=== PATIENT | male | born 1965 | race Caucasian/White ===

== ENCOUNTER 2017-01-25 13:44 | Emergency (ER) | payer MEDICARE, OTHER ==
[~2017-01-25] VITALS: Ht 185.4 cm; Wt 65.0 kg
[2017-01-25 13:48] VITALS: BP 131/86; PULSE 101; RESP 15; TEMP 98.4; O2SAT 98
--- NOTE | 2017-01-25 13:52 | PD ---
Physical Exam Time Seen by Provider: 13:50 Narrative 51yo M requesting staple removal from left hip after left hip replacement 2 weeks ago. Surgeon is in [place]. Denies fever, vomiting. Denies drainage from wound site. Patient seen in triage. VS reviewed. Awaiting bed placement. Data Data Last Documented VS Vital Signs Date Time Temp Pulse Resp B/P (MAP) Pulse Ox O2 Delivery O2 Flow Rate FiO2 01/25/17 13:48 98.4 101 15 131/86 (101) 98 MDM Supervised Visit with MESSI: No Scripts No Active Prescriptions or Reported Meds Franecsca Whitehead Jan 25, 2017 13:52
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
== END 2017-01-25 15:24 | disposition home or self-care (01) ==
LOC: NEPK 13:44
DX: Z48.02 Encounter for removal of sutures (principal); M13.80 Other specified arthritis, unspecified site; J45.909 Unspecified asthma, uncomplicated; F31.9 Bipolar disorder, unspecified; F41.9 Anxiety disorder, unspecified; J44.9 Chronic obstructive pulmonary disease, unspecified; F20.9 Schizophrenia, unspecified; Z86.73 Personal history of transient ischemic attack (TIA), and cerebral infarction without residual deficits; Z86.19 Personal history of other infectious and parasitic diseases
CPT/HCPCS: 99281

== ENCOUNTER 2017-01-27 18:33 | Emergency (ER) | payer MEDICARE, MEDICAID ==
[~2017-01-27] VITALS: Ht 185.4 cm; Wt 65.0 kg
[2017-01-27 18:51] VITALS: BP 125/80; PULSE 72; RESP 18; TEMP 98.5; O2SAT 98
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
[2017-01-27] MEDS ORDERED: SODIUM CHLORIDE 0.9% FLUSH 10 ML FLUSH IV FLUSH PRN (19:00)
[2017-01-27] MEDS ORDERED: MULTTAB67 PO (19:09)
[2017-01-27] MEDS ORDERED: CELE200C PO (19:09)
[2017-01-27 19:42] LABS: AUTOMATED NEUTROPHIL # 5.7 TH/MM3 (1.8-7.7); BASOPHIL # 0.1 TH/MM3 (0-0.2); BASOPHIL % 0.7 % (0.0-2.0); EOSINOPHIL # 0.2 TH/MM3 (0-0.4); HEMATOCRIT 35.1 % (39.0-51.0); HEMO FLAGS DIFF FINAL; LYMPH % 24.6 % (9.0-44.0); LYMPHOCYTE # 2.1 TH/MM3 (1.0-4.8); MEAN CELL VOLUME 96.1 FL (80.0-100.0); MEAN CORPUSCULAR HGB CONC 33.3 % (32.0-36.0); MONO % 6.4 % (0.0-8.0); NEUT % 66.3 % (16.0-70.0); PLATELET COUNT 331 TH/MM3 (150-450); RED BLOOD COUNT 3.65 MIL/MM3 (4.50-5.90); RED CELL DISTRIBUTION WIDTH 15.1 % (11.6-17.2); WHITE BLOOD COUNT 8.7 TH/MM3 (4.0-11.0)
[2017-01-27 19:51] LABS: APTT (PATIENT) 27.8 SEC (24.3-30.1)
[2017-01-27] MEDS ORDERED: ONDANSETRON HCL 4 MG/2 ML VIAL IV PUSH ONE (20:00)
[2017-01-27] MEDS ORDERED: MORPHINE SULFATE 4 MG/ML INJ IV PUSH ONE (20:00)
--- NOTE | 2017-01-27 20:23 | RADRPT ---
EXAM DATE/TIME: 01/27/2017 19:21 [facility] COMPARISON: No previous studies available for comparison. INDICATIONS : Left hip pain post fall with history of hip prosthesis. MEDICAL HISTORY : None. SURGICAL HISTORY : Left hip prosthesis ENCOUNTER: Initial ACUITY: 1 day PAIN SCORE: 10/10 LOCATION: Left hip FINDINGS: There is evidence of superior dislocation of the left hip prosthesis including the acetabular and fem oral components. CONCLUSION: Superior dislocation of the acetabular and femoral components of the left hip prosthesis. Jorge Bledsoe MD on January 27, 2017 at 20:20 Board Certified Radiologist. This report was verified electronically.
[2017-01-27 20:25] LABS: BICARBONATE 22.3 MEQ/L (21.0-32.0); POTASSIUM 4.3 MEQ/L (3.5-5.1)
[2017-01-27] MEDS ORDERED: ETOMIDATE 20 MG/10 ML VIAL IV PUSH ONE (21:15)
[2017-01-27] MEDS ORDERED: PROPOFOL 500 MG/50 ML INJ 50 ML ONE (21:23)
[2017-01-27 21:26] VITALS: O2SAT 98
[2017-01-27] MEDS ORDERED: HYDR-3533 PO (21:54)
--- NOTE | 2017-01-27 21:55 | PD ---
Physical Exam Date Seen by Provider: Jan 27, 2017 Time Seen by Provider: 19:00 Narrative I, Dr. Barahona, have reviewed the advance practice practitioner's documentation and am in agreement, met with the patient face to face, made the diagnosis, and the medical decision making was done by me. *My assessment and Findings: Patient seen and evaluated with PA, please see PA note for further details. Patient has a recent history of left hip replacement , dislocated his slipped today seen on x-ray. At this point, I involved in the case and the patient was consented for conscious sedation and hip reduction. Reduction was done by me with help of PA without issues. Patient tolerated procedure well. Reduction films done. Laboratory Tests Test 01/27/17 19:25 Red Blood Count 3.65 MIL/MM3 (4.50-5.90) Hemoglobin 11.7 GM/DL (13.0-17.0) Hematocrit 35.1 % (39.0-51.0) Calcium Level 7.9 MG/DL (8.5-10.1) Ethyl Alcohol Level 227 MG/DL (0-5) Last 24 hours Impressions Hip X-Ray 01/27/17 0000 Signed Impressions: Service Date/Time: Friday, January 27, 2017 19:21 - CONCLUSION: Superior dislocation of the acetabular and femoral components of the left hip prosthesis. Jorge Bledsoe MD Data Data Last Documented VS Vital Signs Date Time Temp Pulse Resp B/P (MAP) Pulse Ox O2 Delivery O2 Flow Rate FiO2 01/27/17 21:26 98 3.00 01/27/17 21:26 Nasal Cannula 01/27/17 18:51 98.5 72 18 125/80 (95) Orders Orders Iv Access Insert/Monitor (01/27/17 18:49) Ecg Monitoring (01/27/17 18:49) Oximetry (01/27/17 18:49) Sodium Chloride 0.9% Flush (Ns Flush) (01/27/17 19:00) Basic Metabolic Panel (Bmp) (01/27/17 19:17) Complete Blood Count With Diff (01/27/17 19:17) Prothrombin Time / Inr (Pt) (01/27/17 19:17) Act Partial Throm Time (Ptt) (01/27/17 19:17) Alcohol (Ethanol) (01/27/17 19:17) Hip, Ap Only Wo Ap Pelvis (01/27/17 ) Splint Or Brace Apply/Monitor (01/27/17 19:27) Morphine Inj (Morphine Inj) (01/27/17 20:00) Ondansetron Inj (Zofran Inj) (01/27/17 20:00) Immobilizer Knee 20 Inch (01/27/17 ) Etomidate Inj (Amidate Inj) (01/27/17 21:15) Propofol 500 Mg/50 Ml Inj (Diprivan 500 (01/27/17 21:23) Hip, Uni(Ap&Lat) Wo Ap Pelvis (01/27/17 ) Sodium Chlorid 0.9% 500 Ml Inj (Ns 500 M (01/27/17 22:00) Labs Laboratory Tests Test 01/27/17 19:25 White Blood Count 8.7 TH/MM3 Red Blood Count 3.65 MIL/MM3 Hemoglobin 11.7 GM/DL Hematocrit 35.1 % Mean Corpuscular Volume 96.1 FL Mean Corpuscular Hemoglobin 32.0 PG Mean Corpuscular Hemoglobin Concent 33.3 % Red Cell Distribution Width 15.1 % Platelet Count 331 TH/MM3 Mean Platelet Volume 7.1 FL Neutrophils (%) (Auto) 66.3 % Lymphocytes (%) (Auto) 24.6 % Monocytes (%) (Auto) 6.4 % Eosinophils (%) (Auto) 2.0 % Basophils (%) (Auto) 0.7 % Neutrophils # (Auto) 5.7 TH/MM3 Lymphocytes # (Auto) 2.1 TH/MM3 Monocytes # (Auto) 0.6 TH/MM3 Eosinophils # (Auto) 0.2 TH/MM3 Basophils # (Auto) 0.1 TH/MM3 CBC Comment DIFF FINAL Differential Comment Prothrombin Time 11.0 SEC Prothromb Time International Ratio 1.0 RATIO Activated Partial Thromboplast Time 27.8 SEC Blood Urea Nitrogen 9 MG/DL Creatinine 0.65 MG/DL Random Glucose 85 MG/DL Calcium Level 7.9 MG/DL Sodium Level 136 MEQ/L Potassium Level 4.3 MEQ/L Chloride Level 106 MEQ/L Carbon Dioxide Level 22.3 MEQ/L Anion Gap 8 MEQ/L Estimat Glomerular Filtration Rate 129 ML/MIN Ethyl Alcohol Level 227 MG/DL [facility] Medical Record Reviewed: Yes Supervised Visit with MESSI: Yes Procedures Procedure Narrative After the risks and benefits were discussed the following procedure was performed: MODERATE SEDATION: The patient was placed on a manager publishing and pulse oximetry. An ambu bag and suction was immediately available at bedside. The patient was monitored by the nurse. Oxygen saturation, heart rate and blood pressure were monitored. Procedural sedation was acheived using 20 mg of etomidate. The patient was observed until awake and alert. Procedural Sedation time in attendance was 10 minutes. The left hip was reduced using the [place] technique. X-ray was done to confirm reduction. His left leg was then placed in a knee immobilizer and patient was given crutches. Diagnosis Primary Impression: Hip dislocation, left Med/Other Pt SpecificInfo: Prescription(s) given Scripts Hydrocodone-Acetaminophen (Lortab) 5-325 Mg Tab 1 TAB PO Q6H Y for PAIN, #15 TAB 0 Refills Prov: Umair Barahona MD 01/27/17 Disposition: 01 DISCHARGE HOME Condition: Stable Umair Barahona MD Jan 27, 2017 21:55
[2017-01-27] MEDS ORDERED: SODIUM CHLORID 0.9% 500 ML INJ 500 ML IV ONE (22:00)
--- NOTE | 2017-01-27 22:10 | RADRPT ---
EXAM DATE/TIME: 01/27/2017 21:47 [facility] COMPARISON: HIP LEFT AP ONLY WO AP PELVIS, January 27, 2017, 19:21. INDICATIONS : Post Reduction MEDICAL HISTORY : None. SURGICAL HISTORY : Left hip prosthesis ENCOUNTER: Subsequent ACUITY: 1 day PAIN SCORE: 3/10 LOCATION: Left hip FINDINGS: There has been successful closed reduction of the dislocated left hip prosthesis. CONCLUSION: Status post successful closed reduction of dislocated left hip prosthesis which now appears anatomic in position. Jorge Bledsoe MD on January 27, 2017 at 22:07 Board Certified Radiologist. This report was verified electronically.
[2017-01-27 23:03] VITALS: BP 145/77
== END 2017-01-27 23:00 | disposition home or self-care (01) ==
LOC: NEPC 18:33
DX: S73.005A Unspecified dislocation of left hip, initial encounter (principal); Z72.0 Tobacco use; Z79.899 Other long term (current) drug therapy; Z98.890 Other specified postprocedural states; Z87.39 Personal history of other diseases of the musculoskeletal system and connective tissue; Z87.09 Personal history of other diseases of the respiratory system; Z86.59 Personal history of other mental and behavioral disorders; Z86.79 Personal history of other diseases of the circulatory system; Z86.19 Personal history of other infectious and parasitic diseases; X58.XXXA Exposure to other specified factors, initial encounter
CPT/HCPCS: 27265; 73501; 80048; 80307; 85025; 85610; 85730; 96374; 96375; 99152; 99285; E0113; J2270; J2405; J7040; L1830

== ENCOUNTER 2017-01-30 21:52 | Emergency (ER) | payer MEDICARE, MEDICAID ==
[~2017-01-30] VITALS: Ht 185.4 cm; Wt 68.0 kg
[~2017-01-30 21:52] MED LIST: CELE200C PO; HYDR-3533 PO; MULTTAB67 PO
[2017-01-30 22:01] VITALS: BP 127/66; PULSE 86; RESP 18; TEMP 97.5; O2SAT 97
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
[2017-01-30] MEDS ORDERED: MORPHINE SULFATE 8 MG/ML INJ IV PUSH ONE (22:30)
--- NOTE | 2017-01-30 22:41 | RADRPT ---
EXAM DATE/TIME: 01/30/2017 22:20 [facility] COMPARISON: HIP LEFT AP ONLY WO AP PELVIS, January 27, 2017, 19:21. HIP LEFT AP ONLY WO AP PELVIS, January 27, 21:47. INDICATIONS : Recent hip replacement, dislocation. MEDICAL HISTORY : None. SURGICAL HISTORY : None. ENCOUNTER: Initial ACUITY: 1 day PAIN SCORE: 0/10 LOCATION: Left hip FINDINGS: There is a new superior joint dislocation involving the left hip prosthesis. The left hip prosthesis was in good position on the post reduction prior exam of 01/27/2017. The bony structures are grossly i ntact.. CONCLUSION: Superior joint dislocation left hip prosthesis. Alhaji Santa MD on January 30, 2017 at 22:38 Board Certified Radiologist. This report was verified electronically.
[2017-01-30] MEDS ORDERED: PROPOFOL 500 MG/50 ML BTL IV ONE (23:00)
[2017-01-30 23:10] VITALS: BP 139/61; PULSE 83; RESP 16; O2SAT 96
[2017-01-30 23:16] VITALS: O2SAT 98
[2017-01-30] MEDS ORDERED: ETOMIDATE 20 MG/10 ML VIAL ONE ×2 (23:27→23:42)
[2017-01-30 23:45] VITALS: BP 144/78; PULSE 84; RESP 14; O2SAT 98
--- NOTE | 2017-01-30 23:53 | PD ---
Data Data Last Documented VS Vital Signs Date Time Temp Pulse Resp B/P (MAP) Pulse Ox O2 Delivery O2 Flow Rate FiO2 01/30/17 23:16 98 Nasal Cannula 6.00 01/30/17 22:01 97.5 86 18 127/66 (86) Orders Orders Morphine Inj (Morphine Inj) (01/30/17 22:30) Pelvis, Ap Only (Routine) (01/30/17 ) Propofol 500 Mg/50 Ml Inj (Diprivan 500 (01/30/17 23:00) Etomidate Inj (Amidate Inj) (01/30/17 23:27) Etomidate Inj (Amidate Inj) (01/30/17 23:42) Hip, Ap Only Wo Ap Pelvis (01/30/17 ) MDM Supervised Visit with MESSI: No Narrative Course I was asked to Dr. Bernabe to assist and perform hip reduction on this patient. Arrived to the patient's room with Dr. Bernabe sedating the patient with 2 police crime scene technician's attempting to reduce the left hip dislocation. I review the x -rays the patient has dislocated both the ball apparatus as well as a socket apparatus from the acetabulum itself. Patient was discussed successfully reduced. Further care by Dr. Bernabe. Procedures Procedure Narrative ORTHOPEDIC REDUCTION: Patient oriented being sedated by Dr. Bernabe I was asked to do the reduction. I was not given opportunity to provide informed consent for the patient. The patient with severe difficulty was able to be reduced with standard traction countertraction method. I provided countertraction while the police crime scene technician's provided anterior traction and internal rotation. It took several attempts to do this. Patient intermittently cooperative. Pulses motor and sensory were confirmed distally after reduction the patient was placed in a knee immobilizer. Patient tolerated the procedure fairly well. Diagnosis Primary Impression: Hip dislocation, left Qualified Codes: S73.005A - Unspecified dislocation of left hip, initial encounter Scripts Hydrocodone-Acetaminophen (Lortab) 5-325 Mg Tab 1 TAB PO Q6H Y for PAIN, #7 TAB 0 Refills Prov: BernabeMargaret DO 01/31/17 Jorge Vernon MD Jan 30, 2017 23:53
[2017-01-31] VITALS: BP 140/80; PULSE 85; RESP 14; O2SAT 99
--- NOTE | 2017-01-31 00:10 | RADRPT ---
EXAM DATE/TIME: 01/30/2017 23:52 [facility] COMPARISON: PELVIS AP ONLY, January 30, 2017, 22:20. HIP LEFT AP ONLY WO AP PELVIS, January 27, 2017, 21:47. INDICATIONS : Post reduction. MEDICAL HISTORY : None. SURGICAL HISTORY : None. ENCOUNTER: Initial ACUITY: 1 day PAIN SCORE: 0/10 LOCATION: Left hip FINDINGS: Single AP view of the left hip demonstrates normal location of the bipolar arthroplasty acetabular co mponent within the acetabulum. Hardware demonstrates no acute finding. No acute osseous abnormality i s visualized. CONCLUSION: Reduction of the acetabular component which is now normally located in the acetabulum. Emre Quinn MD on January 31, 2017 at 0:07 Board Certified Radiologist. This report was verified electronically.
[2017-01-31] MEDS ORDERED: HYDR-3533 PO (00:39)
[2017-01-31] MEDS ORDERED: MORPHINE SULFATE 4 MG/ML INJ IV PUSH ONE (02:00)
[2017-01-31 02:01] VITALS: BP 145/68; PULSE 84; RESP 18; O2SAT 99
[2017-01-31 07:05] VITALS: BP 130/77; PULSE 76; RESP 16; TEMP 97.8; O2SAT 99
[2017-01-31 10:00] VITALS: BP 130/81; TEMP 97.8
== END 2017-01-31 10:03 | disposition home or self-care (01) ==
LOC: NEPC 21:52
DX: S73.005A Unspecified dislocation of left hip, initial encounter (principal); F31.9 Bipolar disorder, unspecified; M13.80 Other specified arthritis, unspecified site; F41.9 Anxiety disorder, unspecified; J44.9 Chronic obstructive pulmonary disease, unspecified; F20.9 Schizophrenia, unspecified; X50.1XXA Overexertion from prolonged static or awkward postures, initial encounter; Z86.19 Personal history of other infectious and parasitic diseases; Z86.73 Personal history of transient ischemic attack (TIA), and cerebral infarction without residual deficits
CPT/HCPCS: 27265; 72170; 73501; 94770; 96374; 96376; 99152; 99153; 99285; J2270

== ENCOUNTER 2017-03-02 23:49 | Emergency (ER) | payer MEDICARE, MEDICAID ==
[~2017-03-02] VITALS: Ht 185.4 cm; Wt 68.2 kg
[2017-03-02 23:53] VITALS: BP 137/65; PULSE 75; RESP 20; TEMP 98.7; O2SAT 96
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
[2017-03-03] MEDS ORDERED: LIDO3CRE TOPICAL (00:29)
[2017-03-03] MEDS ORDERED: ACETAMINOPHEN/HYDROcodone 325 MG/5 MG TAB PO ONE (00:30)
[2017-03-03] MEDS ORDERED: LIDOCAINE 2% JELLY 30 ML TUBE TOPICAL ONE (00:30)
--- NOTE | 2017-03-03 01:04 | RADRPT ---
EXAM DATE/TIME: 03/03/2017 00:21 [facility] COMPARISON: HIP LEFT AP ONLY WO AP PELVIS, January 30, 2017, 23:52. INDICATIONS : Pt states surgery 6 weeks ago and hip has "popped" out. No known injury today. MEDICAL HISTORY : SURGICAL HISTORY : Left hip replacement ENCOUNTER: Initial ACUITY: 1 day PAIN SCORE: 6/10 LOCATION: Left Hip FINDINGS: Examination of the hip demonstrates postoperative left hip replacement. No acute fracture or dislocat ion. No bony destructive changes. CONCLUSION: 1. Postoperative left hip replacement. No acute findings. Caleb Klein MD on March 03, 2017 at 1:01 Board Certified Radiologist. This report was verified electronically.
== END 2017-03-03 02:01 | disposition home or self-care (01) ==
LOC: NEPD 23:49
DX: M25.552 Pain in left hip (principal); G89.29 Other chronic pain; K64.4 Residual hemorrhoidal skin tags; M19.90 Unspecified osteoarthritis, unspecified site; F31.9 Bipolar disorder, unspecified; F41.9 Anxiety disorder, unspecified; J44.9 Chronic obstructive pulmonary disease, unspecified; B19.20 Unspecified viral hepatitis C without hepatic coma; F20.9 Schizophrenia, unspecified
CPT/HCPCS: 73501; 99283

== ENCOUNTER 2017-06-07 11:10 | Emergency (ER) | payer MEDICARE, OTHER ==
[~2017-06-07 11:10] MED LIST changes: +LIDO3CRE TOPICAL
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
[2017-06-07 12:11] VITALS: BP 144/63; PULSE 78; O2SAT 98
--- NOTE | 2017-06-07 13:10 | RADRPT ---
EXAM DATE/TIME: 06/07/2017 12:52 [facility] COMPARISON: CT BRAIN W/O CONTRAST, March 09, 2016, 23:05. INDICATIONS : Altered mental status. RADIATION DOSE: 34.79 CTDIvol (mGy) MEDICAL HISTORY : Cerebrovascular disease. Chronic obstructive pulmonary disease. Hepatitis C. SURGICAL HISTORY : None. ENCOUNTER: Initial ACUITY: 1 day PAIN SCALE: 0/10 LOCATION: cranial TECHNIQUE: Multiple contiguous axial images were obtained of the head. Using automated exposure control and adj ustment of the mA and/or kV according to patient size, radiation dose was kept as low as reasonably a chievable to obtain optimal diagnostic quality images. DICOM format image data is available electro nically for review and comparison. FINDINGS: CEREBRUM: The ventricles are normal for age. No evidence of midline shift, mass lesion, hemorrhage or acute in farction. No extra-axial fluid collections are seen. POSTERIOR FOSSA: The cerebellum and brainstem are intact. The 4th ventricle is midline. The cerebellopontine angle i s unremarkable. EXTRACRANIAL: The visualized portion of the orbits is intact. SKULL: The calvaria is intact. No evidence of skull fracture. CONCLUSION: No acute disease. Jorge Bledsoe MD on June 07, 2017 at 13:07 Board Certified Radiologist. This report was verified electronically.
[2017-06-07 13:12] VITALS: BP_SYST 123; BP_SYST 126; BP_DIAS 73; BP_DIAS 82
[2017-06-07 15:19] VITALS: BP 103/65
== END 2017-06-07 16:34 | disposition home or self-care (01) ==
LOC: NEPD 11:10
DX: F10.129 Alcohol abuse with intoxication, unspecified (principal); M19.90 Unspecified osteoarthritis, unspecified site; F31.9 Bipolar disorder, unspecified; F41.9 Anxiety disorder, unspecified; J44.9 Chronic obstructive pulmonary disease, unspecified; F20.9 Schizophrenia, unspecified; F17.200 Nicotine dependence, unspecified, uncomplicated; Z86.73 Personal history of transient ischemic attack (TIA), and cerebral infarction without residual deficits; Z86.19 Personal history of other infectious and parasitic diseases
CPT/HCPCS: 70450; 99284

== ENCOUNTER 2017-06-30 02:50 | Emergency (ER) | payer MEDICARE, OTHER ==
[2017-06-30 03:02] VITALS: BP 117/64; PULSE 74; RESP 18; TEMP 97.7; O2SAT 98
[2017-06-30] MEDS ORDERED: LYRI75CA PO (03:12)
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
[2017-06-30] MEDS ORDERED: ACETAMINOPHEN 325 MG TAB PO ONE (03:15)
== END 2017-06-30 04:06 | disposition home or self-care (01) ==
LOC: NEPC 02:50
DX: M79.604 Pain in right leg (principal); M79.605 Pain in left leg; F17.200 Nicotine dependence, unspecified, uncomplicated
CPT/HCPCS: 99283

== ENCOUNTER 2017-12-09 10:03 | Inpatient (IN) ==
[2017-12-09] MEDS ORDERED: Morphine Inj 4 MG/ML Vial IV.PUSH ONE (10:40)
[2017-12-09 11:16] LABS: Baso % (Auto) 0.5 % (0.0-2.0); Eos # (Auto) 0.1 th/mm3 (0.0-0.4); Eos % (Auto) 1.1 % (0.0-4.0); Hematocrit 43.4 % (39.0-51.0); Lymph # (Auto) 1.2 th/mm3 (1.0-4.8); Lymph % (Auto) 19.4 % (9.0-44.0); Mean Corpuscular HGB Conc 34.6 % (32.0-36.0); Mean Corpuscular Hemoglobin 33.3 pg (27.0-34.0); Mean Corpuscular Volume 96.3 fL (80.0-100.0); Mean Platelet Volume 7.8 fL (7.0-11.0); Mono # (Auto) 0.6 th/mm3 (0.0-0.9); Mono % (Auto) 9.6 % (0.0-8.0); Neut # (Auto) 4.2 th/mm3 (1.8-7.7); Neut % (Auto) 69.4 % (16.0-70.0); Platelet Count 139 th/mm3 (150-450); Red Blood Count 4.51 mil/mm3 (4.50-5.90)
[2017-12-09 11:38] LABS: Albumin 3.7 g/dL (3.4-5.0); Anion Gap 10 meq/L (5-15); Aspartate Aminotransferase 39 U/L (15-37); Blood Urea Nitrogen 8 mg/dL (7-18); Carbon Dioxide 22.2 meq/L (21.0-32.0); Chloride 105 meq/L (98-107); Glomerular Filtration Rate Greater Than 89 mL/min (>89); Glucose,Random 92 mg/dL (74-106); Potassium 3.9 meq/L (3.5-5.1); Sodium 137 meq/L (136-145)
[2017-12-09 11:42] LABS: Alanine Aminotransferase 42 U/L (12-78); Alkaline Phosphatase 56 U/L (45-117); Creatine Kinase 426 U/L (39-308)
--- NOTE | 2017-12-09 11:53 | XR ---
EXAM DATE: 12/09/2017 11:27 AM EDT AGE/SEX: 52 years / Male INDICATIONS: Pain without trauma. CLINICAL DATA: This is the patient's initial encounter. Patient reports that signs and symptoms have been present for 1 day and indicates a pain score of 10/10. MEDICAL/SURGICAL HISTORY: . Dislocation, left hip. . Hip replacement, left. COMPARISON: [facility], HIP LEFT AP ONLY WO AP PELVIS, 03/03/2017. . FINDINGS: Views of the pelvis and left hip obtained. Left hip arthroplasty displaced superiorly. Right hip unre markable. Vascular calcifications. Postsurgical changes in the pelvis CONCLUSION: Dislocation left hip prosthesis superiorly. Electronically signed by: Sander Shaffer MD 12/09/2017 11:52 AM EDT
[2017-12-09 11:58] LABS: CKMB Percent 0.6 % (0.0-4.0); Creatine Kinase MB 2.5 ng/mL (0.5-3.6)
--- NOTE | 2017-12-09 12:20 | ED ---
HPI General Chief complaint: Fall Stated complaint: Hip pain/EVAC Time Seen by Provider: 12/09/17 10:36 Source: patient Mode of arrival: EMS Limitations: no limitations History of Present Illness HPI narrative: Patient is a 52-year-old male who comes in planing of left hip pain. He says yesterday he felt his hip come out of the socket while getting out of bed. He says he has not been able to walk since then. He has been drinking beer to cope with the pain. He has had multiple problems with this hip in the past and it has come out of the socket multiple times. He denies any other injuries. He denies any falls or loss of consciousness. He has not taken anything for the pain. Severity is moderate. Related Data Home Medications Medication Instructions Recorded Confirmed No Known Home Medications 12/09/17 12/09/17 Allergies Allergy/AdvReac Type Severity Reaction Status Date / Time No Known Allergies Allergy Unverified 12/09/17 10:37 Review of Systems Except as stated in HPI: all other systems reviewed are negative Constitutional Denies chills and Denies fever(s) ENT Denies dizziness Cardiovascular Denies chest pain Respiratory Denies dyspnea and Denies dyspnea on exertion Gastrointestinal Denies nausea and Denies vomiting Musculoskeletal Reports deformity and Reports arthralgias Integumentary/Breasts Denies change in pigmentation Neurologic Denies focal weakness PMFSH Medical History Medical History Bipolar 1 disorder (Acute) Chronic obstruct airways disease (Acute) Schizophrenia (Acute) Surgical History Surgical History H/O neck surgery (Acute) History of colostomy reversal (Acute) History of left hip replacement (Acute) History of right knee joint replacement (Acute) History of surgical removal of left nipple (Acute) History of surgical removal of right nipple (Acute) Social History Social History Second Hand Smoke Exposure: Yes Smoking Status: Current every day smoker Tobacco Type: Cigarettes How Often Do You Have a Drink Containing Alcohol: 2 to 3 times a week Recent Travel in [facility] within the Last 8 Weeks: No Recent Out of Country Travel within the Last 8 Weeks: No Immunization History Tetanus Immunization: >5 Years Exam Narrative Exam Narrative: GENERAL: Awake and alert, in no acute distress. SKIN: Focused skin assessment warm/dry. No wounds or signs of infection. HEAD: Atraumatic. Normocephalic. EYES: Pupils equal and round. No scleral icterus. ENT: Mucous membranes pink and moist. NECK: Trachea midline. No JVD. CARDIOVASCULAR: Regular rate and rhythm. No murmur appreciated. RESPIRATORY: No accessory muscle use. Clear to auscultation. Breath sounds equal bilaterally. MUSCULOSKELETAL: Left hip is obviously dislocated. Leg is shortened and internally rotated. Pedal pulse intact. NEUROLOGICAL: Awake and alert. No obvious cranial nerve deficits. Motor grossly within normal limits. Normal speech. PSYCHIATRIC: Appropriate mood and affect; insight and judgment normal. Procedures Procedural Sedation Indications: fracture/dislocation reduction ASA Class: ASA 2 Moderate Systemic Disease Preparation: monitoring tech applied, pulse oximeter, capnometry used, supplemental O2 applied, suction/airway equipment at bedside and IV secured IV Propofol Dose (mgs): 130 Patient Tolerated Procedure: well and no complications Complications: none Interventions: oxygen applied Course Reevaluation(s) Reevaluation #1: Left hip reduced, patient feeling relief of pain. Time: 12:19 Initial Documented Vital Signs Temperature 98.8 F 12/09/17 10:12 Pulse Rate 80 12/09/17 10:12 Respiratory Rate 20 12/09/17 10:12 Blood Pressure 137/82 12/09/17 10:12 Pulse Oximetry 97 12/09/17 10:12 Last Documented Vital Signs Temperature 98.8 F 12/09/17 10:12 Pulse Rate 80 12/09/17 10:12 Respiratory Rate 20 12/09/17 10:12 Blood Pressure 137/82 12/09/17 10:12 Pulse Oximetry 97 12/09/17 10:12 Medical Decision Making [facility] Narrative Medical decision making narrative: Patient is a 52-year-old male who comes in complaining of left hip dislocation. Exam shows the hip to be dislocated, pulses intact. IV established, labs sent. Labs show no acute abnormalities. X -ray of the hip confirms dislocation. Patient was sedated and hip reduced by Dr. Vernon. Postreduction film shows disruption of the prosthesis. I spoke with Dr. Dangelo of orthopedics, he says the hip can be reduced like normal, explained that there was an issue with the prosthesis after reduction. He says admit to medicine and or so will consult for repair. Admitted for further management. Lab Data Result diagrams: 12/09/17 10:45 12/09/17 10:45 Lab Results 12/09/17 12/09/17 Range/Units 10:45 10:45 WBC 6.0 (4.0-11.0) th/mm3 RBC 4.51 (4.50-5.90) mil/mm3 Hgb 15.0 (13.0-17.0) gm/dL Hct 43.4 (39.0-51.0) % MCV 96.3 (80.0-100.0) fL MCH 33.3 (27.0-34.0) pg MCHC 34.6 (32.0-36.0) % RDW 13.0 (11.6-17.2) % Plt Count 139 L (150-450) th/mm3 MPV 7.8 (7.0-11.0) fL Neut % (Auto) 69.4 (16.0-70.0) % Lymph % (Auto) 19.4 (9.0-44.0) % Dickens % (Auto) 9.6 H (0.0-8.0) % Eos % (Auto) 1.1 (0.0-4.0) % Baso % (Auto) 0.5 (0.0-2.0) % Neut # (Auto) 4.2 (1.8-7.7) th/mm3 Lymph # (Auto) 1.2 (1.0-4.8) th/mm3 Dickens # (Auto) 0.6 (0.0-0.9) th/mm3 Eos # (Auto) 0.1 (0.0-0.4) th/mm3 Baso # (Auto) 0.0 (0.0-0.2) th/mm3 WBC Differential . Differential Comment Auto diff final Sodium 137 (136-145) meq/L Potassium 3.9 (3.5-5.1) meq/L Chloride 105 (98-107) meq/L Carbon Dioxide 22.2 (21.0-32.0) meq/L Anion Gap 10 (5-15) meq/L BUN 8 (7-18) mg/dL Creatinine 0.76 (0.60-1.30) mg/dL Estimated GFR Greater than 89 (>89) mL/min Random Glucose 92 (74-106) mg/dL Calcium 9.0 (8.5-10.1) mg/dL Total Bilirubin 0.6 (0.2-1.0) mg/dL AST 39 H (15-37) U/L ALT 42 (12-78) U/L Alkaline Phosphatase 56 (45-117) U/L Total Creatine Kinase 426 H (39-308) U/L CK-MB (CK-2) 2.5 (0.5-3.6) ng/mL CK-MB (CK-2) % 0.6 (0.0-4.0) % Total Protein 8.0 (6.4-8.2) g/dL Albumin 3.7 (3.4-5.0) g/dL Imaging Data Radiologist's impression: ITS Impressions Hip X-Ray 12/09/17 11:04 CONCLUSION: Dislocation left hip prosthesis superiorly. Hip X-Ray 12/09/17 11:59 CONCLUSION: Persistent superior dislocation of the acetabular component of the hip prosthesis. The left femoral component has been relocated to anatomic position. Discharge Plan Discharge Disposition Patient Disposition: 30 Still Patient Discharge Condition Condition: Stable Discharge Details Discharge Problem: Dislocation, hip, Joint prosthesis complication Physicians Team ED Provider: Rocio Oliver Primary Care Provider: Primary Care Shanna,Brigitte Attending Provider: Lenore Jiménez Other Providers: Moncho Dangelo Status ED Status: Admitted Patient
--- NOTE | 2017-12-09 12:22 | ED ---
Procedures Orthopedic Joint Reduction Left hip: Time Out Performed: Yes Side: left Joint Reduction Location: hip Analgesia: procedural sedation Shoulder Technique Used (if applicable): traction/counter-traction and external rotation Post-Reduction Neuro Exam: intact Post-Reduction Vascular Exam: intact Post Reduction X-Ray Obtained: Yes Post Reduction X-Ray Results: other (Unfortunately this patient had dislocation of the prosthetic hip from the prosthetic joint cup and the joint cup is outside of the acetabulum and in the prosthetic joint is inside the acetabulum. Orthopedic surgery will need to be consulted for operative reduction.) Additional Comments: Patient seen and examined by me, reduced under Dr. Oliver sedation. This patient has been here multiple times for reduction of his acetabular cup which is dislocated from his acetabular socket. I have also reduced him once here. He had initial total hip performed at an outside facility and has not been able to follow-up with his surgeon there. Unfortunately today the patient will obligate surgical consultation as the cup is dislocated and cannot be manipulated back into the acetabulum in the ER peer
--- NOTE | 2017-12-09 12:26 | XR ---
EXAM DATE: 12/09/2017 12:13 PM EDT AGE/SEX: 52 years / Male INDICATIONS: Post reduction left hip. CLINICAL DATA: This is the patient's initial encounter. Patient reports that signs and symptoms have been present for 1 day and indicates a pain score of 4/10. MEDICAL/SURGICAL HISTORY: None. . Left total hip replacement. COMPARISON: C, HIP LEFT W AP PELVIS 2V, 12/09/2017. . FINDINGS: Post reduction views demonstrates continued displacement of the acetabular component. The femoral com ponent has been relocated to its anatomic position. No fracture. CONCLUSION: Persistent superior dislocation of the acetabular component of the hip prosthesis. The left femoral c omponent has been relocated to anatomic position. Electronically signed by: Sander Shaffer MD 12/09/2017 12:25 PM EDT
--- NOTE | 2017-12-09 13:46 | P.HPFP ---
History of Present Illness Primary Care Physician: No Primary Care Physician <Lenore Jiménez - 12/10/17 16:10> No Primary Care Physician <Charlene Priest - 12/09/17 13:46> Chief Complaint: Left hip dislocation <Charlene Priest - 12/09/17 22:58> History of Present Illness: Patient is a 52-year-old male with past medical history of COPD and prior left hip prosthesis who presents to the ED due to painful left hip dislocation. Patient reports that yesterday as he was trying to get out of bed his left hip "came out" of place. The pain was more intense today (rating 10/10) and he decided to come to the ED for further evaluation. Currently pain is 8/10. The day prior patient states that he fell from a chair but did not notice any pain or other issues with his left hip. Endorses numbness tingling of feet bilaterally since 1 month ago. Denies any chest pain , shortness of breath, palpitations, seizure activity, loss of consciousness, bowel or bladder incontinence, N/V. Of note patient has had 3 previous episodes of left hip dislocation. Initially left hip surgery was done 1 year ago, patient reports that there was no injury to the left hip at that time. He remembers walking and then hearing a "pop" of the left hip. He underwent surgery and a month later the left hip dislocated, it was again fixed and 2 weeks later it "came out again". Denies any abnormal bone condition. Patient lives in a hotel and has ambulated independently until recent left hip dislocation. <Charlene Priest - 12/09/17 22:58> - Diagnosis (1) Dislocation, hip (2) Joint prosthesis complication (3) COPD (chronic obstructive pulmonary disease) (4) History of alcohol abuse (5) Nutrition, metabolism, and development symptoms <Lenore Jiménez - 12/10/17 16:10> (1) Dislocation, hip (2) Joint prosthesis complication (3) COPD (chronic obstructive pulmonary disease) (4) History of alcohol abuse (5) Nutrition, metabolism, and development symptoms <Charlene Priest - 12/09/17 22:16> Inpatient Certification: I certify that the inpatient services were ordered in accordance with Medicare regulations governing the order. This includes certification that hospital inpatient services are reasonable and necessary and in the case of services not specified as inpatient-only under 42 CFR 419.22(n), that they are appropriately provided as inpatient services in accordance to with the 2-midnight benchmark under 43 CFR 412.3(e) <Lenore Jiménez Vickie - 12/10/17 16:10> I certify that the inpatient services were ordered in accordance with Medicare regulations governing the order. This includes certification that hospital inpatient services are reasonable and necessary and in the case of services not specified as inpatient-only under 42 CFR 419.22(n), that they are appropriately provided as inpatient services in accordance to with the 2-midnight benchmark under 43 CFR 412.3(e) <Charlene Priest D 12/09/17 13:46> Review of Systems Constitutional: Reports weight loss (in the last yr), Denies chills, Denies night sweats <Charlene Priest D 12/09/17 13:46> Ears, Nose, Mouth, and Throat: Denies abnormal hearing <Charlene Priest D 01/19 13:46> Cardiovascular: Denies chest pain, Denies fainting, Denies fast heart rate, Denies lightheadedness <Charlene Priest D 12/09/17 13:46> Respiratory: Reports cough (chronic), Reports wheezing (chronic), Denies shortness of breath <Charlene Priest D 12/09/17 13:46> Gastrointestinal: Denies abdominal pain, Denies nausea, Denies vomiting < Charlene Priest D 12/09/17 13:46> Genitourinary: Denies blood in urine, Denies painful urination <CalCharlene peterson D 12/09/17 13:46> Musculoskeletal: Reports back pain, Reports joint pain <HilariozaCharlene carney D 01/19 13:46> Skin/Breast: Denies change in skin color <Charlene Priest D 12/09/17 13:46> Neurologic: Reports tingling/numbness/burning sensations, Denies abnormal speech , Denies memory loss <Charlene Priest D 12/09/17 13:46> Hematologic/Lymphatic: Denies easy bruising <Charlene Priest - 12/09/17 13:46> [facility] - History History Provided By: Patient <Charlene Priest - 12/09/17 13:46> - Medical History Medical History: Medical History (Last Updated 12/09/17 @ 22:30 by Charlene Priest MD, R1) Bipolar 1 disorder Chronic obstruct airways disease Hepatitis C Schizophrenia <Lenore Jiménez - 12/10/17 16:10> Medical History (Last Updated 12/09/17 @ 22:28 by Charlene Priest MD, R1) Bipolar 1 disorder Chronic obstruct airways disease Hepatitis C Schizophrenia <Charlene Priest - 12/09/17 22:58> - Surgical History Surgical History: Surgical History (Last Updated 12/09/17 @ 22:29 by Charlene Priest MD, R1) H/O neck surgery History of colostomy reversal History of left hip replacement History of right knee joint replacement History of surgical removal of left nipple History of surgical removal of right nipple <Lenore Jiménez - 12/10/17 16:10> Surgical History (Last Updated 12/09/17 @ 22:29 by Charlene Priest MD, R1) H/O neck surgery History of colostomy reversal History of left hip replacement History of right knee joint replacement History of surgical removal of left nipple History of surgical removal of right nipple <Charlene Priest - 12/09/17 22:58> - Family History Family History: Family History (Last Updated 12/09/17 @ 22:33 by Charlene Priest MD, R1) Mother Cancer Uncle Bone cancer <Lenore Jiménez - 12/10/17 16:10> Family History (Last Updated 12/09/17 @ 22:33 by Charlene Priest MD, R1) Mother Cancer Uncle Bone cancer <Charlene Priest - 12/09/17 22:58> - Tobacco History Second Hand Smoke Exposure: Yes <Charlene Priest - 12/09/17 13:46> Tobacco Use In Past 30 Days: Yes <Charlene Priest 12/09/17 13:46> Smoking Status: Current every day smoker <Charlene Priest 12/09/17 13:46> Tobacco Type: Cigarettes <Charlene Priest 12/09/17 13:46> Packs Per Day: 2 <Charlene Priest 12/09/17 22:58> years: 38 <Charlene Priest 12/09/17 22:58> - Alcohol History How Often Do You Have a Drink Containing Alcohol: 2 to 3 times a week <Charlene Priest 12/09/17 13:46> - Substance Use History Substance History: No History of Abuse <Charlene Priest 12/09/17 22:58> - Travel History History of Recent Travel: No <Charlene Priest 12/09/17 22:58> Recent Travel in the [place] Within the Last 8 Weeks: No <Charlene Priest 13:46> Recent Travel Out of the Country Within the Last 8 Weeks: No <Charlene Priest 12/09/17 13:46> - Immunization History Tetanus Immunization: >5 Years <Charlene Priest 12/09/17 13:46> Medications and Allergies Allergies Allergy/AdvReac Type Severity Reaction Status Date / Time No Known Allergies Allergy Unverified 12/09/17 10:37 <Lenore Jiménez - 12/10/17 16:10> Home Medications Medication Instructions Recorded Confirmed Type multivitamin 1 tab PO DAILY 12/09/17 12/09/17 History <Lenore Jiménez - 12/10/17 16:10> Active Medications: Active Medications Al Hydroxide/Mg Hydroxide (Milk Of Luis Likarl) 30 ml PO Q12H PRN PRN Reason: Mild Constipation Albuterol (Duoneb Neb (Prn)) 1 ampul NEB Q4HR NEB PRN PRN Reason: SHORTNESS OF BREATH/WHEEZING Bisacodyl (Dulcolax Supp) 10 mg RECTAL DAILY PRN PRN Reason: SEVERE CONSITIPATION Chlorhexidine Gluconate (Chlorhexidine 2% Cloth) 3 pack [employer] SYSTEM[employer] CHERRIE Stop: 12/13/17 00:40 Enoxaparin Sodium (Lovenox Inj) 40 mg SQ Q24H [facility] Flumazenil (Romazecon Inj) 0.2 mg IV.PUSH Q1M PRN PRN Reason: OVERSEDATION Haloperidol Lactate (Haldol Inj) 1 mg IV.PUSH Q15M PRN PRN Reason: for severe agitation Sodium Chloride (Ns Inj) 1,000 mls @ 100 mls/hr IV.CONT .Q10H [facility] Last Admin: 12/10/17 11:45 Dose: Not Given Lactated Ringer's (Lr 1000 Ml Inj) 1,000 mls @ 30 mls/hr IV.SIG .Q24H [facility] Stop: 12/13/17 00:40 Last Admin: 12/10/17 07:13 Dose: Not Given Sodium Chloride (Ns Inj) 500 mls @ 30 mls/hr IV.SIG .Q10H [facility] Stop: 12/13/17 00:40 Cefazolin Sodium/Dextrose (Ancef 2 Gm Premix Inj) 2 gm in 50 mls @ 100 mls/hr IV.SIG Q6H [facility] Stop: 12/11/17 02:29 Vancomycin/Sodium Chloride (Vancomycin Inj) 1 gm in 200 mls @ 200 mls/hr IV.SIG Q12H [facility] Stop: 12/11/17 08:59 Lactulose (Lactulose Liq) 30 ml PO DAILY PRN PRN Reason: SEVERE CONSITIPATION Lorazepam (Ativan) 2 mg PO Q2H PRN PRN Reason: for CIWA 11-14 Lorazepam (Ativan Inj) 2 mg IV.PUSH Q2H PRN PRN Reason: for CIWA 11-14 Lorazepam (Ativan Inj) 2 mg IV.PUSH Q1H PRN PRN Reason: for CIWA 15-20 Lorazepam (Ativan Inj) 1 mg IV.PUSH Q4H PRN PRN Reason: for CIWA 8-10 Lorazepam (Ativan) 1 mg PO Q4H PRN PRN Reason: for CIWA 8-10 Lorazepam (Ativan Inj) 2 mg IV.PUSH Q15M PRN PRN Reason: for CIWA > 20 Metoprolol Tartrate (Lopressor) 25 mg PO SYSTEMS TRAINER [facility] Stop: 12/13/17 00:40 Miscellaneous Information ([facility] Nursing Information) 1 each OTHER UNSCH PRN PRN Reason: SEE LABEL COMMENTS Stop: 12/11/17 08:34 Morphine Sulfate (Morphine Inj) 2 mg IV.PUSH Q3H PRN PRN Reason: BREAKTHROUGH PAIN Last Admin: 12/10/17 04:48 Dose: 2 mg Naloxone HCl (Narcan Inj) 0.4 mg IV.PUSH UNSCH PRN PRN Reason: SEE LABEL COMMENTS Ondansetron HCl (Zofran Inj) 4 mg IV.PUSH Q6H PRN PRN Reason: NAUSEA OR VOMITING Ondansetron HCl (Zofran Odt) 4 mg PO Q6H PRN PRN Reason: NAUSEA OR VOMITING Oxycodone HCl (Roxicodone) 5 mg PO Q4H PRN PRN Reason: PAIN SCALE 4 TO 6 MODERATE Oxycodone HCl (Roxicodone) 10 mg PO Q4H PRN PRN Reason: PAIN SCALE 6 TO 10 Last Admin: 12/10/17 10:20 Dose: 10 mg Povidone Iodine (Betadine 5% Antisepsis Kit) 1 applicatio EACH [employer] SYSTEMS TRAINER [facility] Stop: 12/13/17 00:40 Promethazine HCl (Phenergan) 25 mg PO Q6H PRN PRN Reason: NAUSEA OR VOMITING Senna/Docusate Sodium (Janie-Colace) 1 tab PO BID PRN PRN Reason: CONSTIPATION Sennosides (Senokot) 17.2 mg PO Q12H PRN PRN Reason: Moderate Constipation Sodium Chloride (Ns Flush) 2 ml IV.FLUSH BID [facility] Last Admin: 12/10/17 11:44 Dose: Not Given Sodium Chloride (Ns Flush) 2 ml IV.FLUSH PRN PRN PRN Reason: FLUSH AFTER USING IV ACCESS Temazepam (Restoril) 15 mg PO HS PRN PRN Reason: INSOMNIA <Lenore Jiménez - 12/10/17 16:10> Exam Vital signs: Vital Signs 12/09/17 20:00 12/10/17 00:00 12/10/17 04:00 Temperature 98.2 F 98.1 F 98.1 F Pulse Rate 71 63 52 L Respiratory Rate 17 17 17 Blood Pressure 137/65 129/70 133/70 Pulse Oximetry 97 95 98 12/10/17 08:35 12/10/17 08:45 12/10/17 09:00 Temperature 98.2 F Pulse Rate 64 62 66 Respiratory Rate 16 Blood Pressure 162/82 H 150/71 H 139/69 Pulse Oximetry 12/10/17 09:15 12/10/17 09:35 12/10/17 10:03 Temperature 98 F Pulse Rate 72 68 Respiratory Rate 18 Blood Pressure 127/70 138/67 Pulse Oximetry 100 12/10/17 10:31 12/10/17 12:00 Temperature 97.7 F 97.9 F Pulse Rate 71 72 Respiratory Rate 14 18 Blood Pressure 137/75 104/74 Pulse Oximetry 99 98 Intake & Output 12/09/17 12/10/17 12/10/17 18:59 06:59 18:59 Intake Total 283 / 283 360 / 360 978.2 / 978.2 Output Total 500 / 500 50 / 50 Balance 283 / 283 -140 / -140 928.2 / 928.2 Weight 63.796 kg Intake: IV 283 / 283 478.2 / 478.2 NS Inj 250 ML @ 0 mls/hr .ROUTE 250 / 250 .STK-MED ONE Rx#:[id number] MVI-12 Inj 10 ML Thiamine Inj 283 / 283 100 MG Folvite Inj 1 MG In 1/2 Normal Saline Inj 500 ML @ 127. 8 mls/hr IV.SIG ONCE ONE Rx#: [id number] Oral 360 / 360 Anesthesia Amount 500 / 500 Output: Urine 500 / 500 Estimated Blood Loss 50 / 50 Other: Date of Last Bowel Movement 12/09/17 12/09/17 12/09/17 # Bowel Movements 0 Weight On Admission 63.596 kg <Lenore Jiménez M - 12/10/17 16:10> Vital Signs 12/09/17 10:12 Temperature 98.8 F Pulse Rate 80 Respiratory Rate 20 Blood Pressure 137/82 Pulse Oximetry 97 Intake & Output 12/08/17 12/09/17 12/09/17 18:59 06:59 18:59 Weight 63.503 kg <Charlene Priest - 12/09/17 13:46> - Constitutional no acute distress, thin, disheveled <Charlene Priest - 12/09/17 22:58> - Routine HEENT Exam Head: Present: normocephalic, atraumatic <Charlene Priest - 12/09/17 22:58> Eye: Present: EOMI (mild ptosis of Right eye), PERRL. Absent: nystagmus < Charlene Priest 12/09/17 22:58> ENT: Present: mucous membranes moist <Charlene Priest 12/09/17 22:58> - Routine Neck Exam Present: supple, full ROM. Absent: JVD <Charlene Priest 12/09/17 22:58> - Routine Chest/Breast/Axilla Exam Chest wall: Absent: tenderness <Charlene Priest 12/09/17 22:58> Breast: Absent: tenderness <Charlene Priest 12/09/17 22:58> - Routine Respiratory Exam Present: wheezes (mild inspiratory wheezing BL). Absent: accessory muscle use <Charlene Priest 12/09/17 22:58> - Routine Cardiovascular Exam Present: RRR, S1, S2. Absent: murmur, gallop, rubs <Charlene Priest 22:58> - Routine Abdominal Exam Present: soft, normoactive bowel sounds. Absent: tenderness, distended, rebound , guarding <Charlene Priest 12/09/17 22:58> - Routine Extremities Exam Present: pulses intact, normal capillary refill. Absent: cyanosis, clubbing, edema, joint swelling <Charlene Priest 12/09/17 22:58> Comments: Left leg in brace, pt unable to move left leg due to pain. Able to move toes of feet BL. Normal sensation BL of LE. <Charlene Priest 12/09/17 22:58> - Routine Neurological Exam Present: alert, oriented X3, CN II-XII intact, normal speech. Absent: altered mental status <Charlene Priest Mickie 12/09/17 22:58> Results - Labs Result diagrams: 12/10/17 05:50 12/10/17 05:50 <Lenore Jiménez - 12/10/17 16:10> Abnormal lab results 12/10/17 12/10/17 Range/Units 05:50 05:50 RBC 4.04 L (4.50-5.90) mil/mm3 Plt Count 110 L (150-450) th/mm3 Calcium 8.3 L (8.5-10.1) mg/dL Total Creatine Kinase 310 H (39-308) U/L Albumin 3.2 L (3.4-5.0) g/dL Short CBC 12/10/17 Range/Units 05:50 WBC 4.1 (4.0-11.0) th/mm3 Hgb 13.5 (13.0-17.0) gm/dL Hct 39.7 (39.0-51.0) % Plt Count 110 L (150-450) th/mm3 BMP 12/10/17 05:50 Sodium 139 Potassium 4.5 Chloride 106 Carbon Dioxide 27.6 BUN 13 Creatinine 0.67 Calcium 8.3 L Cardiac Enzymes 12/10/17 Range/Units 05:50 Total Creatine Kinase 310 H (39-308) U/L CK-MB (CK-2) 1.7 (0.5-3.6) ng/mL Liver Function 12/10/17 Range/Units 05:50 Total Bilirubin 0.5 (0.2-1.0) mg/dL AST 36 (15-37) U/L ALT 34 (12-78) U/L Alkaline Phosphatase 52 (45-117) U/L Albumin 3.2 L (3.4-5.0) g/dL <Lenore Jiménez - 12/10/17 16:10> Abnormal lab results 12/09/17 12/09/17 Range/Units 10:45 10:45 Plt Count 139 L (150-450) th/mm3 [place] % (Auto) 9.6 H (0.0-8.0) % AST 39 H (15-37) U/L Total Creatine Kinase 426 H (39-308) U/L Short CBC 12/09/17 Range/Units 10:45 WBC 6.0 (4.0-11.0) th/mm3 Hgb 15.0 (13.0-17.0) gm/dL Hct 43.4 (39.0-51.0) % Plt Count 139 L (150-450) th/mm3 [facility] 12/09/17 10:45 Sodium 137 Potassium 3.9 Chloride 105 Carbon Dioxide 22.2 BUN 8 Creatinine 0.76 Calcium 9.0 Cardiac Enzymes 12/09/17 Range/Units 10:45 Total Creatine Kinase 426 H (39-308) U/L CK-MB (CK-2) 2.5 (0.5-3.6) ng/mL Liver Function 12/09/17 Range/Units 10:45 Total Bilirubin 0.6 (0.2-1.0) mg/dL AST 39 H (15-37) U/L ALT 42 (12-78) U/L Alkaline Phosphatase 56 (45-117) U/L Albumin 3.7 (3.4-5.0) g/dL <Charlene Priest - 12/09/17 13:46> - Imaging Impressions Hip X-Ray 12/10/17 00:00 CONCLUSION: Anatomic alignment. <Lenore Jiménez - 12/10/17 16:10> Impressions Hip X-Ray 12/09/17 11:04 CONCLUSION: Dislocation left hip prosthesis superiorly. Hip X-Ray 12/09/17 11:59 CONCLUSION: Persistent superior dislocation of the acetabular component of the hip prosthesis. The left femoral component has been relocated to anatomic position. <Charlene Priest - 12/09/17 13:46> Caprini VTE Risk Assessment Caprini VTE Risk Assessment: Moderate/High Risk (score >= 2) (Patient scheduled for surgery tomorrow) <Charlene Priest - 12/09/17 22:58> Caprini Risk Assessment Model: Point Value = 1 Point Value = 2 Point Value = 3 Point Value = 5 Age 41-60 Minor surgery BMI > 25 kg/m2 Swollen legs Varicose veins or History of unexplained or recurrent spontaneous Oral contraceptives or hormone replacement Sepsis (< 1 month) Serious lung disease, including pneumonia (< 1 month) Abnormal pulmonary function Acute myocardial infarction Congestive heart failure (< 1 month) History of inflammatory bowel disease Medical patient at bed rest Age 61-74 Arthroscopic surgery Major open surgery (> 45 min) Laparoscopic surgery (> 45 min) Malignancy Confined to bed (> 72 hours) Immobilizing plaster cast Central venous access Age >= 75 History of VTE Family history of VTE Factor V Leiden Prothrombin [id number] Lupus anticoagulant Anticardiolipin antibodies Elevated serum homocysteine Heparin-induced thrombocytopenia Other congenital or acquired thrombophilia Stroke (< 1 month) Elective arthroplasty Hip, pelvis, or leg fracture Acute spinal cord injury (< 1 month) <Lenore Jiménez - 12/10/17 16:10> Point Value = 1 Point Value = 2 Point Value = 3 Point Value = 5 Age 41-60 Minor surgery BMI > 25 kg/m2 Swollen legs Varicose veins or History of unexplained or recurrent spontaneous Oral contraceptives or hormone replacement Sepsis (< 1 month) Serious lung disease, including pneumonia (< 1 month) Abnormal pulmonary function Acute myocardial infarction Congestive heart failure (< 1 month) History of inflammatory bowel disease Medical patient at bed rest Age 61-74 Arthroscopic surgery Major open surgery (> 45 min) Laparoscopic surgery (> 45 min) Malignancy Confined to bed (> 72 hours) Immobilizing plaster cast Central venous access Age >= 75 History of VTE Family history of VTE Factor V Leiden Prothrombin [id number] Lupus anticoagulant Anticardiolipin antibodies Elevated serum homocysteine Heparin-induced thrombocytopenia Other congenital or acquired thrombophilia Stroke (< 1 month) Elective arthroplasty Hip, pelvis, or leg fracture Acute spinal cord injury (< 1 month) <Charlene Priest - 12/09/17 13:46> Prophylaxis Regimen: Total Risk Factor Score Risk Level Prophylaxis Regimen 0-1 Low Early ambulation 2 Moderate Order ONE of the following: *Sequential Compression Device (SCD) *Heparin 5000 units SQ BID 3-4 Higher Order ONE of the following medications: *Heparin 5000 units SQ TID *Enoxaparin/Lovenox 40 mg SQ daily (WT < 150 kg, CrCl > 30 mL/min) *Enoxaparin/Lovenox 30 mg SQ daily (WT < 150 kg, CrCl > 10-29 mL/min) *Enoxaparin/Lovenox 30 mg SQ BID (WT < 150 kg, CrCl > 30 mL/min) AND/OR *Sequential Compression Device (SCD) 5 or more Highest Order ONE of the following medications: *Heparin 5000 units SQ TID (Preferred with Epidurals) *Enoxaparin/Lovenox 40 mg SQ daily (WT < 150 kg, CrCl > 30 mL/min) *Enoxaparin/Lovenox 30 mg SQ daily (WT < 150 kg, CrCl > 10-29 mL/min) *Enoxaparin/Lovenox 30 mg SQ BID (WT < 150 kg, CrCl > 30 mL/min) AND *Sequential Compression Device (SCD) <Lenore Jiménez - 12/10/17 16:10> Total Risk Factor Score Risk Level Prophylaxis Regimen 0-1 Low Early ambulation 2 Moderate Order ONE of the following: *Sequential Compression Device (SCD) *Heparin 5000 units SQ BID 3-4 Higher Order ONE of the following medications: *Heparin 5000 units SQ TID *Enoxaparin/Lovenox 40 mg SQ daily (WT < 150 kg, CrCl > 30 mL/min) *Enoxaparin/Lovenox 30 mg SQ daily (WT < 150 kg, CrCl > 10-29 mL/min) *Enoxaparin/Lovenox 30 mg SQ BID (WT < 150 kg, CrCl > 30 mL/min) AND/OR *Sequential Compression Device (SCD) 5 or more Highest Order ONE of the following medications: *Heparin 5000 units SQ TID (Preferred with Epidurals) *Enoxaparin/Lovenox 40 mg SQ daily (WT < 150 kg, CrCl > 30 mL/min) *Enoxaparin/Lovenox 30 mg SQ daily (WT < 150 kg, CrCl > 10-29 mL/min) *Enoxaparin/Lovenox 30 mg SQ BID (WT < 150 kg, CrCl > 30 mL/min) AND *Sequential Compression Device (SCD) <Charlene Priest - 12/09/17 13:46> Assessment and Plan - Assessment (1) Dislocation, hip Code(s): S73.006A - Unspecified dislocation of unspecified hip, initial encounter Status: Acute (2) Joint prosthesis complication Code(s): T84.9XXA - Unspecified complication of internal orthopedic prosthetic device, implant and graft, initial encounter Status: Acute (3) COPD (chronic obstructive pulmonary disease) Code(s): J44.9 - Chronic obstructive pulmonary disease, unspecified Status: Chronic (4) History of alcohol abuse Code(s): Z87.898 - Personal history of other specified conditions Status: Chronic (5) Nutrition, metabolism, and development symptoms Code(s): R63.8 - Other symptoms and signs concerning food and fluid intake Status: Acute <Lenore Jiménez - 12/10/17 16:10> (1) Dislocation, hip Code(s): S73.006A - Unspecified dislocation of unspecified hip, initial encounter Status: Acute Plan: Patient with multiple episodes of hip dislocation. s/p Left total hip replacement. Most recently the Left the hip dislocated yesterday while patient was trying to get out of bed. Patient reports pain is 8/10. Range of movement is limited on left leg due to pain however lower extremities are neuro- vascularly intact. The ED left hip joint reduction was done. Left hip x-ray: Persistent superior dislocation of the acetabular component of the hip prosthesis. Left femoral component has been relocated to anatomical position. Vital signs stable Pain management: Henderson per pain protocol Orthopedics consulted, appreciate recommendations -Plan for OR tomorrow (2) Joint prosthesis complication Code(s): T84.9XXA - Unspecified complication of internal orthopedic prosthetic device, implant and graft, initial encounter Status: Acute Plan: See plan above (3) COPD (chronic obstructive pulmonary disease) Code(s): J44.9 - Chronic obstructive pulmonary disease, unspecified Status: Chronic Plan: She with mild inspiratory wheezing on exam. Vital signs within normal limits DuoNeb 1 c/w Duo nebs as needed for shortness of breath. Titrate oxygen as needed to O2 saturation greater than 92%. (4) History of alcohol abuse Code(s): Z87.898 - Personal history of other specified conditions Status: Chronic Plan: Patient with history of alcohol abuse Placed on CIWA s/p thiamine and folic replacement (5) Nutrition, metabolism, and development symptoms Code(s): R63.8 - Other symptoms and signs concerning food and fluid intake Status: Acute Plan: Fluids: 100mls/hr Electrolytes: Replete as needed Nutrition: N.p.o. at midnight. DVT prophylaxis: SCDs <Charlene Priest - 12/09/17 22:16> - Attending Attestation The exam, history, and the medical decision-making described in the above note were completed with the assistance of the resident physician. I reviewed and agree with the findings presented. I attest that I had a [id number] encounter with the patient on the same day, and personally performed and documented my assessment and findings in the medical record. Mr Bang was seen in the ED on admission. appreciate help of Ortho <Lenore Jiménez M - 12/10/17 16:10> <Charlene Priest D - Last Filed: 12/09/17 22:16> (1) Dislocation, hip Qualifiers: Encounter type: initial encounter Laterality: left Qualified Code(s): S73.005A - Unspecified dislocation of left hip, initial encounter (2) Joint prosthesis complication Qualifiers: Internal joint prosthesis site: hip Device complication type: mechanical Mechanical complication type: mechanical breakdown Encounter type: initial encounter Laterality: left Qualified Code(s): T84.011A - Broken internal left hip prosthesis, initial encounter <TinoLenore M - Last Filed: 12/10/17 16:10> (1) Dislocation, hip Qualifiers: Encounter type: initial encounter Laterality: left Qualified Code(s): S73.005A - Unspecified dislocation of left hip, initial encounter (2) Joint prosthesis complication Qualifiers: Internal joint prosthesis site: hip Device complication type: mechanical Mechanical complication type: mechanical breakdown Encounter type: initial encounter Laterality: left Qualified Code(s): T84.011A - Broken internal left hip prosthesis, initial encounter <Charlene Priest D - Last Filed: 12/09/17 22:16> (1) Dislocation, hip Qualifiers: Encounter type: initial encounter Laterality: left Qualified Code(s): S73.005A - Unspecified dislocation of left hip, initial encounter (2) Joint prosthesis complication Qualifiers: Internal joint prosthesis site: hip Device complication type: mechanical Mechanical complication type: mechanical breakdown Encounter type: initial encounter Laterality: left Qualified Code(s): T84.011A - Broken internal left hip prosthesis, initial encounter <Leonre Jiménez - Last Filed: 12/10/17 16:10> (1) Dislocation, hip Qualifiers: Encounter type: initial encounter Laterality: left Qualified Code(s): S73.005A - Unspecified dislocation of left hip, initial encounter (2) Joint prosthesis complication Qualifiers: Internal joint prosthesis site: hip Device complication type: mechanical Mechanical complication type: mechanical breakdown Encounter type: initial encounter Laterality: left Qualified Code(s): T84.011A - Broken internal left hip prosthesis, initial encounter
--- NOTE | 2017-12-09 14:00 | ECG ---
Date Performed: 12/09/2017 Time Performed: 10:17:32 PTAGE: 52 years EKG: Sinus rhythm NORMAL ECG NO PREVIOUS TRACING DOCTOR: Nate Black Interpretating Date/Time 12/09/2017 14:00:15
[2017-12-09] MEDS ORDERED: Bisacodyl 10 MG Supp RECTAL PRN (14:06)
[2017-12-09] MEDS ORDERED: Senna/Docusate Sodium 8.6/50 MG Tablet PO PRN (14:06)
[2017-12-09] MEDS ORDERED: Naloxone Inj 0.4 MG/ML Vial IV.PUSH PRN (14:09)
[2017-12-09] MEDS ORDERED: LORazepam 1 MG Tablet PO PRN (14:12)
[2017-12-09] MEDS ORDERED: Haloperidol Inj 5 MG/ML Ampul IV.PUSH PRN (14:12)
[2017-12-09] MEDS ORDERED: Multivitamin Inj 10 ML, Thiamine Inj 100 MG, Folic Acid Inj 1 MG in Sodium Chloride 0.4... IV.SIG ONE (14:18)
[2017-12-09] MEDS: Sod Chloride 0.9% Inj 1,000 ML IV.CONT SCH (16:03)
[2017-12-09] MEDS: Morphine Inj 4 MG/ML Vial IV.PUSH PRN (17:16)
[2017-12-10] MEDS ORDERED: Metoprolol Tartrate 25 MG Tablet PO SCH (00:45)
[2017-12-10] MEDS ORDERED: Chlorhexidine Gluconate 2% 1 Pack (2 Cloths) TOPICAL SCH (00:45)
[2017-12-10] MEDS ORDERED: Sodium Chlor 0.9% Inj 500 ML IV.SIG SCH (01:00)
[2017-12-10] MEDS: Morphine Inj 4 MG/ML Vial IV.PUSH PRN (04:48)
[2017-12-10 06:10] LABS: Hematocrit 39.7 % (39.0-51.0); Hemoglobin 13.5 gm/dL (13.0-17.0); Mean Corpuscular Hemoglobin 33.5 pg (27.0-34.0); Mean Corpuscular Volume 98.4 fL (80.0-100.0); Mean Platelet Volume 7.9 fL (7.0-11.0); Platelet Count 110 th/mm3 (150-450); Red Blood Count 4.04 mil/mm3 (4.50-5.90); Red Cell Distribution Width 13.4 % (11.6-17.2); White Blood Count 4.1 th/mm3 (4.0-11.0)
[2017-12-10] MEDS ORDERED: Dexmedetomidine Inj 200 MCG/2 ML Vial ONE (06:13)
[2017-12-10 06:35] LABS: Albumin 3.2 g/dL (3.4-5.0); Anion Gap 5 meq/L (5-15); Aspartate Aminotransferase 36 U/L (15-37); Blood Urea Nitrogen 13 mg/dL (7-18); Calcium 8.3 mg/dL (8.5-10.1); Carbon Dioxide 27.6 meq/L (21.0-32.0); Chloride 106 meq/L (98-107); Glomerular Filtration Rate Greater Than 89 mL/min (>89); Glucose,Random 101 mg/dL (74-106); Potassium 4.5 meq/L (3.5-5.1); Sodium 139 meq/L (136-145)
[2017-12-10 06:38] LABS: Alanine Aminotransferase 34 U/L (12-78); Alkaline Phosphatase 52 U/L (45-117); Creatine Kinase 310 U/L (39-308); Total Protein 6.9 g/dL (6.4-8.2)
[2017-12-10 06:57] LABS: CKMB Percent 0.5 % (0.0-4.0); Creatine Kinase MB 1.7 ng/mL (0.5-3.6)
[2017-12-10] MEDS ORDERED: Sodium Chlor 0.9% Inj 250 ML ONE (07:03)
[2017-12-10] MEDS ORDERED: Bupivacaine/Epinephrine Inj 0.25% 50 ML Vial ONE (07:04)
[2017-12-10] MEDS: Sod Chloride 0.9% Inj 1,000 ML IV.CONT SCH ×3 (07:13→22:55)
--- NOTE | 2017-12-10 07:14 | P.PNOP ---
Subjective Interval history: Previous left hip hemiarthroplasty. Surgeon is from out of the area. Patient has a history of 3 dislocations. During this dislocation hardware failure occurred with the ball dislocating from femoral component. No other complaints Physical Exam Vital signs: Vital Signs 12/09/17 10:12 12/09/17 13:00 12/09/17 14:00 Temperature 98.8 F Pulse Rate 80 90 90 Respiratory Rate 20 20 18 Blood Pressure 137/82 141/77 H 117/66 Pulse Oximetry 97 96 97 12/09/17 15:30 12/09/17 16:00 12/09/17 20:00 Temperature 98.4 F 98.2 F Pulse Rate 88 71 71 Respiratory Rate 18 18 17 Blood Pressure 145/71 H 122/62 137/65 Pulse Oximetry 97 98 97 12/10/17 00:00 12/10/17 04:00 Temperature 98.1 F 98.1 F Pulse Rate 63 52 L Respiratory Rate 17 17 Blood Pressure 129/70 133/70 Pulse Oximetry 95 98 Intake & Output 12/09/17 12/10/17 12/10/17 18:59 06:59 18:59 Intake Total 283 / 283 360 / 360 Output Total 500 / 500 Balance 283 / 283 -140 / -140 Weight 63.796 kg Intake: IV 283 / 283 MVI-12 Inj 10 ML Thiamine Inj 283 / 283 100 MG Folvite Inj 1 MG In 1/2 Normal Saline Inj 500 ML @ 127. 8 mls/hr IV.SIG ONCE ONE Rx#: [id number] Oral 360 / 360 Output: Urine 500 / 500 Other: Date of Last Bowel Movement 12/09/17 12/09/17 # Bowel Movements 0 Weight On Admission 63.596 kg Narrative: Bilateral upper extremities: Full range of motion and neurovascularly intact Right lower extremity: Full range of motion and neurovascularly intact Left lower extremity: Pain to palpation of hip. Skin is intact. No pain with knee or ankle gentle movement. Intact sensation distally with active dorsiflexion plantar flexion of foot Results - Labs CBC & Chem 7: 12/10/17 05:50 12/10/17 05:50 Laboratory Results - last 24 hr 12/09/17 12/09/17 12/10/17 10:45 10:45 05:50 WBC 6.0 4.1 RBC 4.51 4.04 L Hgb 15.0 13.5 Hct 43.4 39.7 MCV 96.3 98.4 MCH 33.3 33.5 MCHC 34.6 34.0 RDW 13.0 13.4 Plt Count 139 L 110 L MPV 7.8 7.9 Neut % (Auto) 69.4 Lymph % (Auto) 19.4 [place] % (Auto) 9.6 H Eos % (Auto) 1.1 Baso % (Auto) 0.5 Neut # (Auto) 4.2 Lymph # (Auto) 1.2 [place] # (Auto) 0.6 Eos # (Auto) 0.1 Baso # (Auto) 0.0 WBC Differential . Differential Comment Auto diff final Sodium 137 Potassium 3.9 Chloride 105 Carbon Dioxide 22.2 Anion Gap 10 BUN 8 Creatinine 0.76 Estimated GFR Greater than 89 Random Glucose 92 Calcium 9.0 Total Bilirubin 0.6 AST 39 H ALT 42 Alkaline Phosphatase 56 Total Creatine Kinase 426 H CK-MB (CK-2) 2.5 CK-MB (CK-2) % 0.6 Total Protein 8.0 Albumin 3.7 Blood Type 12/10/17 12/10/17 05:50 05:50 WBC RBC Hgb Hct MCV MCH MCHC RDW Plt Count MPV Neut % (Auto) Lymph % (Auto) [place] % (Auto) Eos % (Auto) Baso % (Auto) Neut # (Auto) Lymph # (Auto) [place] # (Auto) Eos # (Auto) Baso # (Auto) WBC Differential Differential Comment Sodium 139 Potassium 4.5 Chloride 106 Carbon Dioxide 27.6 Anion Gap 5 BUN 13 Creatinine 0.67 Estimated GFR Greater than 89 Random Glucose 101 Calcium 8.3 L Total Bilirubin 0.5 AST 36 ALT 34 Alkaline Phosphatase 52 Total Creatine Kinase 310 H CK-MB (CK-2) 1.7 CK-MB (CK-2) % 0.5 Total Protein 6.9 D Albumin 3.2 L Blood Type A Positive - Imaging Impressions Hip X-Ray 12/09/17 11:04 CONCLUSION: Dislocation left hip prosthesis superiorly. Hip X-Ray 12/09/17 11:59 CONCLUSION: Persistent superior dislocation of the acetabular component of the hip prosthesis. The left femoral component has been relocated to anatomic position. Assessment and Plan - Assessment and Plan Left hip hemiarthroplasty with component failure N.p.o. Surgery this morning for revision of left femur arthroplasty Sign consents
--- NOTE | 2017-12-10 07:44 | MB ---
cc: Chin Marion MD DATE: 12/10/2017 REASON FOR CONSULTATION: Left hip bipolar dislocation CONSULTING PHYSICIAN: Dr. Lenore Jiménez HISTORY: Singh is a 52-year-old male who has multiple medical problems including COPD. He states that he had a fall over a year ago. He had a left femoral neck fracture treated with surgery for a left hip hemiarthroplasty in [place]. He has dislocated his hip at least 3 times. He states he was getting out of bed when his hip popped out of place. He presented to the emergency room. They attempted to close reduce his hip. The bipolar hip dissociated. I have been consulted for definitive treatment of this injury. He is currently awake and alert on the orthopedic floor. Pain is worse with movement and is improved with rest. PAST MEDICAL HISTORY: Bipolar disorder, COPD, hepatitis, and schizophrenia. PAST SURGICAL HISTORY: Colostomy, colostomy reversal, left hip replacement, multiple cysts removals. ALLERGIES: NO KNOWN DRUG ALLERGIES. MEDICATIONS: Please see EMR for a complete list of inpatient medications. This was reviewed. FAMILY HISTORY: Positive for cancer in mother and uncle. SOCIAL HISTORY: The patient smokes cigarettes. He drinks alcohol a few times a week. He denies any other drug use. REVIEW OF SYSTEMS: The patient denies fevers, chills, weight loss, headache, visual changes, hearing loss, chest pain, palpitations, shortness of breath, nausea, vomiting, urinary changes, neck or back pain, skin rashes, weakness or numbness of extremities, depression or anxiety. He complains of left hip pain. The pain is worse with movement. LABORATORY DATA: The patient has a white blood cell count of 4.1, hematocrit of 39.7, platelet count of 110, potassium 4.5, creatinine 0.67. X-RAYS: X-rays of the left hip are reviewed. X-rays reveal a dislocated left hip bipolar hemiarthroplasty. The head and stem have dissociated. PHYSICAL EXAMINATION: GENERAL: The patient is a thin 52-year-old male. He appears older than his stated age. He is awake and alert. He is in no acute distress. VITAL SIGNS: Temperature 98.1, pulse 52, respirations 17, blood pressure 133/70, O2 saturations 98% on 2 liters nasal cannula. HEAD: The patient is normocephalic. EYES: Pupils are equal. NECK: Soft, nontender. The trachea is midline. ABDOMEN: Soft, nontender, and nondistended. EXTREMITIES: Examination of bilateral upper extremities reveals no pain with shoulder, elbow or wrist motion. He has intact sensation in all fingers. He has good cap refill in all fingers. Skin is intact. Radial pulses are palpable. Examination of the right leg reveals no pain with hip, knee or ankle motion. Skin is intact. Dorsalis pedis pulses palpable. Sensation is intact. Examination of the left leg reveals the leg is shortened and internally rotated. He has pain with any hip motion. There appears to be deformity along the hip. He has no tenderness in his knee or ankle. Skin is intact. IMPRESSION: 1. Chronic obstructive pulmonary disease. 2. Bipolar disorder. 3. Left hip dislocation. 4. Dissociation of left hip hemiarthroplasty. PLAN: Treatment options were discussed with the patient. At this point, I would recommend surgery for open reduction and revision of left hip hemiarthroplasty. The risks of surgery include bleeding, infection, injury to arteries, nerves and vessels, leg length discrepancy, recurrent dislocation, as well as medical complications associated with anesthesia. All questions were answered. I will plan surgery today. A mid-level provider in my office, nurse practitioner or PA, may see this patient on a follow-up basis and continue to implement the objective of this plan including: Starting or adjusting medications, injections of muscle, tendon, bursa or joints, cast application, orthotic or brace application, physical therapy, further radiographic studies including x-ray, MRI, CT, ultrasounds or bone scan, vascular studies, neurologic studies, or other specialist consultations, and proceeding with surgical management as appropriate. Finding [employer] 3 prescription drug monitoring database has been queried and verified prior to prescribing the controlled substance. Acute pain exception. This patient has a normal predicted physiological and time-limited response to an adverse mechanical stimulus associated with surgery and trauma. There is a lack of alternative treatment options other than prescribed narcotic medication. MD JEAN-PIERRE Vaca/SID , 07:24 AM , 07:43 AM FLAKO
[2017-12-10] MEDS ORDERED: SODIUM CHLOR 0.9% IV.SIG SCH (08:00)
[2017-12-10] MEDS ORDERED: TRANEXAMIC ACID IV.SIG SCH (08:00)
--- NOTE | 2017-12-10 08:34 | P.OP ---
Date of procedure: 12/10/17 Procedure: Revision of left hip bipolar anton-arthroplasty Implants: [place] size 53 bipolar head with 28+4 head Anesthesia: DAVE Surgeon: Chin Fleming MD Financial Aid Officer: RUDI Strong PA-C The surgical procedure was assisted by my physician clinical services assistant. My P.A. presence was necessary throughout this case for the manipulation and positioning of the surgical extremity. My P.A. was assisting me throughout the duration of this procedure. The skill set of a physician clinical services assistant was medically necessary to complete this procedure. During the surgical case the surgical supply assistant was working at the back table and the physician clinical services assistant was directly assisting me. Operation and Findings: PLAN OF ACTIVITY Weight bear as tolerated. IMPLANTS USED [place] size [53] bipolar head and [28+4] neck. DETAILS OF PROCEDURE This patient was brought into the operating room and placed on the OR table. The patient was given anesthesia. The patient received IV antibiotics. The patient was then placed in lateral decubitus position. The hip and leg were prepped with alcohol, followed by Hibiclens and draped in a usual sterile fashion. Clean air was used for this procedure. Time out procedure was performed. The procedure began with a 5 inch incision over the posterolateral hip. The subcutaneous tissue was dissected with the Bovie. The iliotibial band were split in line with fibers. The Charnley retractor was placed. At this point the dislocated bipolar hip was visualized. The head was removed. The smaller head was now removed from the femoral stem using a bone tamp and mallet. At this point the cycle was visualized. Patient had a relatively shallow acetabulum. He is now dislocated approximately 3 times in the past year. Decision was made to ream the acetabulum to deepen the socket. The acetabulum was reamed up to size 53. At this point a trial 28+4 head with 53 bipolar was placed. Hip was reduced. Patient had good range of motion with good stability. The trial components were dislocated and removed. The Striker components were now opened. The head and neck were now impacted onto the stem. The hip was again reduced. The hip was found to have good range of motion and good stability. Leg lengths were clinically equal. The wound was thoroughly irrigated. The capsule, piriformis and iliotibial band were closed with #1 Vicryl. Subcutaneous tissue was closed with 3-0 Vicryl. The skin was closed with isamar. A sterile dressing was applied with Primapore. The patient was placed into a knee immobilizer. The patient was awakened and transferred to the recovery room in stable condition. Needle and sponge counts were correct.
[2017-12-10] MEDS ORDERED: Post-op Orders (for Pharmacy) OTHER STA (08:35)
[2017-12-10] MEDS ORDERED: fentaNYL Citrate Inj 100 MCG/2 ML Ampul ONE (08:42)
[2017-12-10] MEDS ORDERED: *Meperidine Inj 25 MG/ML Vial PERIprocedural Use ONLY ONE (08:45)
[2017-12-10] MEDS ORDERED: ceFAZolin 2 GM Premix Inj 2 GM/50 ML PIGGYBACK IV.SIG ONE (09:26)
--- NOTE | 2017-12-10 09:57 | P.HPFP ---
History of Present Illness Primary Care Physician: No Primary Care Physician Chief Complaint: Left hip dislocation History of Present Illness: Mr Bang is a 52-year-old male with past medical history of COPD and prior left hip prosthesis who presented to the ED due to painful left hip dislocation. Patient reports that as he was trying to get out of bed his left hip "came out" of place. The pain was more intense (rating 10/10) and he decided to come to the ED for further evaluation. pain in the ED was 8/10. The day prior patient states that he fell from a chair but did not notice any pain or other issues with his left hip. Endorses numbness tingling of feet bilaterally since 1 month ago. Denies any chest pain, shortness of breath, palpitations, seizure activity , loss of consciousness, bowel or bladder incontinence, N/V. Of note patient has had 3 previous episodes of left hip dislocation. Initially left hip surgery was done 1 year ago, patient reports that there was no injury to the left hip at that time. He remembers walking and then hearing a "pop" of the left hip. He underwent surgery and a month later the left hip dislocated, it was again fixed and 2 weeks later it "came out again". Denies any abnormal bone condition. Patient lives in a hotel and has ambulated independently until recent left hip dislocation. He fortunately was able to have surgery to repair his hip. Evidently the acetabulum was shallow so it was upgraded to hold the hip replacement better. - Diagnosis (1) Dislocation, hip (2) Joint prosthesis complication (3) COPD (chronic obstructive pulmonary disease) (4) History of alcohol abuse (5) Nutrition, metabolism, and development symptoms Inpatient Certification: I certify that the inpatient services were ordered in accordance with Medicare regulations governing the order. This includes certification that hospital inpatient services are reasonable and necessary and in the case of services not specified as inpatient-only under 42 CFR 419.22(n), that they are appropriately provided as inpatient services in accordance to with the 2-midnight benchmark under 43 CFR 412.3(e) Estimated Total Length of Stay (Days): 5 Plans for Post Hospital Care: Not yet determined Review of Systems other (see ROS from H&P) [facility] - History History Provided By: Patient - Medical History Medical History: Medical History (Last Updated 12/09/17 @ 22:30 by Charlene Priest MD, R1) Bipolar 1 disorder Chronic obstruct airways disease Hepatitis C Schizophrenia - Surgical History Surgical History: Surgical History (Last Updated 12/09/17 @ 22:29 by Charlene Priest MD, R1) H/O neck surgery History of colostomy reversal History of left hip replacement History of right knee joint replacement History of surgical removal of left nipple History of surgical removal of right nipple - Family History Family History: Family History (Last Updated 12/09/17 @ 22:33 by Charlene Priest MD, R1) Mother Cancer Uncle Bone cancer - Tobacco History Second Hand Smoke Exposure: Yes Tobacco Use In Past 30 Days: Yes Smoking Status: Current every day smoker Tobacco Type: Cigarettes Packs Per Day: 2 years: 40 - Alcohol History How Often Do You Have a Drink Containing Alcohol: 2 to 3 times a week - Substance Use History Substance History: No History of Abuse - Travel History History of Recent Travel: No Recent Travel in the [place] Within the Last 8 Weeks: No Recent Travel Out of the Country Within the Last 8 Weeks: No - Immunization History Tetanus Immunization: >5 Years Hx Influenza Vaccine This Season: No Medications and Allergies Active Medications: Active Medications Al Hydroxide/Mg Hydroxide (Milk Of Luis [place]) 30 ml PO Q12H PRN PRN Reason: Mild Constipation Albuterol (Duoneb Neb (Prn)) 1 ampul NEB Q4HR NEB PRN PRN Reason: SHORTNESS OF BREATH/WHEEZING Bisacodyl (Dulcolax Supp) 10 mg RECTAL DAILY PRN PRN Reason: SEVERE CONSITIPATION Chlorhexidine Gluconate (Chlorhexidine 2% Cloth) 3 pack TOPICAL AMBULANCE DRIVER [facility] Stop: 12/13/17 00:40 Enoxaparin Sodium (Lovenox Inj) 40 mg SQ Q24H [facility] Flumazenil (Romazecon Inj) 0.2 mg IV.PUSH Q1M PRN PRN Reason: OVERSEDATION Haloperidol Lactate (Haldol Inj) 1 mg IV.PUSH Q15M PRN PRN Reason: for severe agitation Sodium Chloride (Ns Inj) 1,000 mls @ 100 mls/hr IV.CONT .Q10H [facility] Last Admin: 12/10/17 07:13 Dose: Not Given Lactated Ringer's (Lr 1000 Ml Inj) 1,000 mls @ 30 mls/hr IV.SIG .Q24H [facility] Stop: 12/13/17 00:40 Last Admin: 12/10/17 07:13 Dose: Not Given Sodium Chloride (Ns Inj) 500 mls @ 30 mls/hr IV.SIG .Q10H [facility] Stop: 12/13/17 00:40 Tranexamic Acid 960 mg/ Sodium (Chloride) 109.6 mls @ 200 mls/hr IV.SIG ONCE [facility] Stop: 12/10/17 15:00 Cefazolin Sodium/Dextrose (Ancef 2 Gm Premix Inj) 2 gm in 50 mls @ 100 mls/hr IV.SIG Q6H [facility] Stop: 12/10/17 21:29 Vancomycin/Sodium Chloride (Vancomycin Inj) 1 gm in 200 mls @ 200 mls/hr IV.SIG Q12H [facility] Stop: 12/10/17 21:59 Lactulose (Lactulose Liq) 30 ml PO DAILY PRN PRN Reason: SEVERE CONSITIPATION Lorazepam (Ativan) 2 mg PO Q2H PRN PRN Reason: for CIWA 11-14 Lorazepam (Ativan Inj) 2 mg IV.PUSH Q2H PRN PRN Reason: for CIWA 11-14 Lorazepam (Ativan Inj) 2 mg IV.PUSH Q1H PRN PRN Reason: for CIWA 15-20 Lorazepam (Ativan Inj) 1 mg IV.PUSH Q4H PRN PRN Reason: for CIWA 8-10 Lorazepam (Ativan) 1 mg PO Q4H PRN PRN Reason: for CIWA 8-10 Lorazepam (Ativan Inj) 2 mg IV.PUSH Q15M PRN PRN Reason: for CIWA > 20 Metoprolol Tartrate (Lopressor) 25 mg PO AMBULANCE DRIVER [facility] Stop: 12/13/17 00:40 Miscellaneous Information (Misc Post-Op Orders (For Pharmacy)) 0 each OTHER STAT STA Stop: 12/10/17 08:23 Morphine Sulfate (Morphine Inj) 2 mg IV.PUSH Q3H PRN PRN Reason: BREAKTHROUGH PAIN Last Admin: 12/10/17 04:48 Dose: 2 mg Naloxone HCl (Narcan Inj) 0.4 mg IV.PUSH UNSCH PRN PRN Reason: SEE LABEL COMMENTS Ondansetron HCl (Zofran Inj) 4 mg IV.PUSH Q6H PRN PRN Reason: NAUSEA OR VOMITING Ondansetron HCl (Zofran Odt) 4 mg PO Q6H PRN PRN Reason: NAUSEA OR VOMITING Oxycodone HCl (Roxicodone) 5 mg PO Q4H PRN PRN Reason: PAIN SCALE 4 TO 6 MODERATE Oxycodone HCl (Roxicodone) 10 mg PO Q4H PRN PRN Reason: PAIN SCALE 6 TO 10 Povidone Iodine (Betadine 5% Antisepsis Kit) 1 applicatio EACH NARE AMBULANCE DRIVER [facility] Stop: 12/13/17 00:40 Promethazine HCl (Phenergan) 25 mg PO Q6H PRN PRN Reason: NAUSEA OR VOMITING Senna/Docusate Sodium (Janie-Colace) 1 tab PO BID PRN PRN Reason: CONSTIPATION Sennosides (Senokot) 17.2 mg PO Q12H PRN PRN Reason: Moderate Constipation Sodium Chloride (Ns Flush) 2 ml IV.FLUSH BID [facility] Sodium Chloride (Ns Flush) 2 ml IV.FLUSH PRN PRN PRN Reason: FLUSH AFTER USING IV ACCESS Temazepam (Restoril) 15 mg PO HS PRN PRN Reason: INSOMNIA Allergies Allergy/AdvReac Type Severity Reaction Status Date / Time No Known Allergies Allergy Unverified 12/09/17 10:37 Home Medications Medication Instructions Recorded Confirmed Type multivitamin 1 tab PO DAILY 12/09/17 12/09/17 History Exam Vital signs: Vital Signs 12/09/17 10:12 12/09/17 13:00 12/09/17 14:00 Temperature 98.8 F Pulse Rate 80 90 90 Respiratory Rate 20 20 18 Blood Pressure 137/82 141/77 H 117/66 Pulse Oximetry 97 96 97 12/09/17 15:30 12/09/17 16:00 12/09/17 20:00 Temperature 98.4 F 98.2 F Pulse Rate 88 71 71 Respiratory Rate 18 18 17 Blood Pressure 145/71 H 122/62 137/65 Pulse Oximetry 97 98 97 12/10/17 00:00 12/10/17 04:00 12/10/17 08:35 Temperature 98.1 F 98.1 F 98.2 F Pulse Rate 63 52 L 64 Respiratory Rate 17 17 16 Blood Pressure 129/70 133/70 162/82 H Pulse Oximetry 95 98 12/10/17 08:45 12/10/17 09:00 12/10/17 09:15 Temperature Pulse Rate 62 66 72 Respiratory Rate Blood Pressure 150/71 H 139/69 127/70 Pulse Oximetry 12/10/17 09:35 Temperature 98 F Pulse Rate 68 Respiratory Rate Blood Pressure 138/67 Pulse Oximetry 100 Intake & Output 12/09/17 12/10/17 12/10/17 18:59 06:59 18:59 Intake Total 283 / 283 360 / 360 978.2 / 978.2 Output Total 500 / 500 50 / 50 Balance 283 / 283 -140 / -140 928.2 / 928.2 Weight 63.796 kg Intake: IV 283 / 283 478.2 / 478.2 NS Inj 250 ML @ 0 mls/hr .ROUTE 250 / 250 .STK-MED ONE Rx#:[id number] MVI-12 Inj 10 ML Thiamine Inj 283 / 283 100 MG Folvite Inj 1 MG In 1/2 Normal Saline Inj 500 ML @ 127. 8 mls/hr IV.SIG ONCE ONE Rx#: [id number] Oral 360 / 360 Anesthesia Amount 500 / 500 Output: Urine 500 / 500 Estimated Blood Loss 50 / 50 Other: Date of Last Bowel Movement 12/09/17 12/09/17 # Bowel Movements 0 Weight On Admission 63.596 kg - Constitutional no acute distress, thin, cooperative - Routine HEENT Exam Head: Present: normocephalic, atraumatic Eye: Present: EOMI, PERRL ENT: Present: mucous membranes moist, oropharynx clear - Routine Neck Exam Present: supple, full ROM - Routine Chest/Breast/Axilla Exam Chest wall: Absent: tenderness, mass, pacemaker, chest tube - Routine Respiratory Exam Absent: accessory muscle use, patient mechanically ventilated, decreased breath sounds, CTA bilaterally, prolonged expiratory phase, rales, respiratory distress , rhonchi, stridor, wheezes, crackles, distant breath sounds, diminished air movement - Routine Cardiovascular Exam Present: RRR. Absent: murmur, gallop, rubs, click, bradycardia, tachycardia, irregular rhythm, irregularly irregular, JVD - Routine Abdominal Exam Present: soft. Absent: tenderness, distended, rebound, guarding, firm, rigid - Routine Extremities Exam Present: normal capillary refill. Absent: cyanosis, clubbing, edema, full ROM, tenderness Comments: has bandage over area of left hip - Routine Skin Exam Present: intact, dry, normal turgor. Absent: mottling, petechiae, warm, lesions , jaundice - Routine Neurological Exam Present: alert, oriented X3, CN II-XII intact, moving all extremities, normal tone. Absent: sensory deficit, motor deficit Results - Labs Result diagrams: 12/10/17 05:50 12/10/17 05:50 Abnormal lab results 12/09/17 12/09/17 12/10/17 Range/Units 10:45 10:45 05:50 RBC 4.04 L (4.50-5.90) mil/mm3 Plt Count 139 L 110 L (150-450) th/mm3 [place] % (Auto) 9.6 H (0.0-8.0) % Calcium (8.5-10.1) mg/dL AST 39 H (15-37) U/L Total Creatine Kinase 426 H (39-308) U/L Albumin (3.4-5.0) g/dL 12/10/17 Range/Units 05:50 RBC (4.50-5.90) mil/mm3 Plt Count (150-450) th/mm3 [place] % (Auto) (0.0-8.0) % Calcium 8.3 L (8.5-10.1) mg/dL AST (15-37) U/L Total Creatine Kinase 310 H (39-308) U/L Albumin 3.2 L (3.4-5.0) g/dL Short CBC 12/09/17 12/10/17 Range/Units 10:45 05:50 WBC 6.0 4.1 (4.0-11.0) th/mm3 Hgb 15.0 13.5 (13.0-17.0) gm/dL Hct 43.4 39.7 (39.0-51.0) % Plt Count 139 L 110 L (150-450) th/mm3 BMP 12/09/17 12/10/17 10:45 05:50 Sodium 137 139 Potassium 3.9 4.5 Chloride 105 106 Carbon Dioxide 22.2 27.6 BUN 8 13 Creatinine 0.76 0.67 Calcium 9.0 8.3 L Cardiac Enzymes 12/09/17 12/10/17 Range/Units 10:45 05:50 Total Creatine Kinase 426 H 310 H (39-308) U/L CK-MB (CK-2) 2.5 1.7 (0.5-3.6) ng/mL Liver Function 12/09/17 12/10/17 Range/Units 10:45 05:50 Total Bilirubin 0.6 0.5 (0.2-1.0) mg/dL AST 39 H 36 (15-37) U/L ALT 42 34 (12-78) U/L Alkaline Phosphatase 56 52 (45-117) U/L Albumin 3.7 3.2 L (3.4-5.0) g/dL - Imaging Impressions Hip X-Ray 12/09/17 11:04 CONCLUSION: Dislocation left hip prosthesis superiorly. Hip X-Ray 12/09/17 11:59 CONCLUSION: Persistent superior dislocation of the acetabular component of the hip prosthesis. The left femoral component has been relocated to anatomic position. Caprini VTE Risk Assessment Caprini VTE Risk Assessment: Moderate/High Risk (score >= 2) (Patient scheduled for surgery tomorrow) Caprini Risk Assessment Model: Point Value = 1 Point Value = 2 Point Value = 3 Point Value = 5 Age 41-60 Minor surgery BMI > 25 kg/m2 Swollen legs Varicose veins or History of unexplained or recurrent spontaneous Oral contraceptives or hormone replacement Sepsis (< 1 month) Serious lung disease, including pneumonia (< 1 month) Abnormal pulmonary function Acute myocardial infarction Congestive heart failure (< 1 month) History of inflammatory bowel disease Medical patient at bed rest Age 61-74 Arthroscopic surgery Major open surgery (> 45 min) Laparoscopic surgery (> 45 min) Malignancy Confined to bed (> 72 hours) Immobilizing plaster cast Central venous access Age >= 75 History of VTE Family history of VTE Factor V Leiden Prothrombin [id number] Lupus anticoagulant Anticardiolipin antibodies Elevated serum homocysteine Heparin-induced thrombocytopenia Other congenital or acquired thrombophilia Stroke (< 1 month) Elective arthroplasty Hip, pelvis, or leg fracture Acute spinal cord injury (< 1 month) Prophylaxis Regimen: Total Risk Factor Score Risk Level Prophylaxis Regimen 0-1 Low Early ambulation 2 Moderate Order ONE of the following: *Sequential Compression Device (SCD) *Heparin 5000 units SQ BID 3-4 Higher Order ONE of the following medications: *Heparin 5000 units SQ TID *Enoxaparin/Lovenox 40 mg SQ daily (WT < 150 kg, CrCl > 30 mL/min) *Enoxaparin/Lovenox 30 mg SQ daily (WT < 150 kg, CrCl > 10-29 mL/min) *Enoxaparin/Lovenox 30 mg SQ BID (WT < 150 kg, CrCl > 30 mL/min) AND/OR *Sequential Compression Device (SCD) 5 or more Highest Order ONE of the following medications: *Heparin 5000 units SQ TID (Preferred with Epidurals) *Enoxaparin/Lovenox 40 mg SQ daily (WT < 150 kg, CrCl > 30 mL/min) *Enoxaparin/Lovenox 30 mg SQ daily (WT < 150 kg, CrCl > 10-29 mL/min) *Enoxaparin/Lovenox 30 mg SQ BID (WT < 150 kg, CrCl > 30 mL/min) AND *Sequential Compression Device (SCD) Assessment and Plan - Assessment (1) Dislocation, hip Code(s): S73.006A - Unspecified dislocation of unspecified hip, initial encounter Status: Acute Plan: Patient with multiple episodes of hip dislocation. s/p Left total hip replacement. Most recently the Left the hip dislocated while patient was trying to get out of bed. Patient reports pain is 8/10. Range of movement is limited on left leg due to pain however lower extremities are neuro-vascularly intact. The ED left hip joint reduction was done. Left hip x-ray: Persistent superior dislocation of the acetabular component of the hip prosthesis. Left femoral component has been relocated to anatomical position. Vital signs stable Pain management: [place] per pain protocol Orthopedics consulted, appreciate recommendations -s/p OR today. appreciate prevention of more dislocations (2) Joint prosthesis complication Code(s): T84.9XXA - Unspecified complication of internal orthopedic prosthetic device, implant and graft, initial encounter Status: Acute Plan: See plan above (3) COPD (chronic obstructive pulmonary disease) Code(s): J44.9 - Chronic obstructive pulmonary disease, unspecified Status: Chronic Plan: with mild inspiratory wheezing on exam initially, better now Vital signs within normal limits DuoNeb 1 c/w Duo nebs as needed for shortness of breath. Titrate oxygen as needed to O2 saturation greater than 92%. (4) History of alcohol abuse Code(s): Z87.898 - Personal history of other specified conditions Status: Chronic Plan: Patient with history of alcohol abuse Placed on CIWA s/p thiamine and folic replacement (5) Nutrition, metabolism, and development symptoms Code(s): R63.8 - Other symptoms and signs concerning food and fluid intake Status: Acute Plan: Fluids: 100mls/hr Electrolytes: Replete as needed Nutrition: N.p.o. at midnight. DVT prophylaxis: SCDs H&P: Quality - VTE Deep Vein Thrombosis/Pulmonary Embolism Present on Admission: No (1) Dislocation, hip Qualifiers: Encounter type: initial encounter Laterality: left Qualified Code(s): S73.005A - Unspecified dislocation of left hip, initial encounter (2) Joint prosthesis complication Qualifiers: Internal joint prosthesis site: hip Device complication type: mechanical Mechanical complication type: mechanical breakdown Encounter type: initial encounter Laterality: left Qualified Code(s): T84.011A - Broken internal left hip prosthesis, initial encounter
[2017-12-10] MEDS ORDERED: Lidocaine PF 1% Inj 5 ML Syringe INFILTRATN ONE (12:00)
[2017-12-10] MEDS ORDERED: Neostigmine Inj 5 MG/5 ML Syringe IV.PUSH ONE (12:00)
[2017-12-10] MEDS ORDERED: Glycopyrrolate Inj 1 MG/5 ML Syringe IV.PUSH ONE (12:00)
[2017-12-10] MEDS: ceFAZolin 2 GM Premix Inj 2 GM/50 ML PIGGYBACK IV.SIG SCH ×2 (14:00→20:58)
--- NOTE | 2017-12-10 15:20 | XR ---
EXAM DATE: 12/10/2017 3:18 PM EDT AGE/SEX: 52 years / Male INDICATIONS: Post op left total hip. CLINICAL DATA: This is the patient's subsequent encounter. Patient reports that signs and symptoms h ave been present for 1 day and indicates a pain score of 4/10. MEDICAL/SURGICAL HISTORY: . Cerebrovascular disease. Chronic obstructive pulmonary disease. Hep atitis C. . Left total hip replacement COMPARISON: C, HIP LEFT AP ONLY 1V, 12/09/2017. . FINDINGS: Anatomic alignment following reduction of the acetabular bipolar component. Moderate degenerative changes right hip Marked vascular calcifications. CONCLUSION: Anatomic alignment. Electronically signed by: Herb Cespedes MD 12/10/2017 3:19 PM EDT
[2017-12-10] MEDS: Vancomycin Inj 1 GM/200 ML PIGGYBACK IV.SIG SCH (21:43)
--- NOTE | 2017-12-11 07:59 | P.PNOP ---
Subjective Interval history: States pain is controlled. Does not have knee immobilizer on. It is sitting on the shelf next to bed Physical Exam Vital signs: Vital Signs 12/10/17 08:35 12/10/17 08:45 12/10/17 09:00 Temperature 98.2 F Pulse Rate 64 62 66 Respiratory Rate 16 Blood Pressure 162/82 H 150/71 H 139/69 Pulse Oximetry 12/10/17 09:15 12/10/17 09:35 12/10/17 10:03 Temperature 98 F Pulse Rate 72 68 Respiratory Rate 18 Blood Pressure 127/70 138/67 Pulse Oximetry 100 12/10/17 10:31 12/10/17 12:00 12/10/17 16:00 Temperature 97.7 F 97.9 F 98 F Pulse Rate 71 72 66 Respiratory Rate 14 18 16 Blood Pressure 137/75 104/74 149/59 H Pulse Oximetry 99 98 97 12/10/17 19:13 12/10/17 21:30 12/11/17 00:00 Temperature 97.8 F 97.8 F Pulse Rate 58 L 59 L Respiratory Rate 18 18 18 Blood Pressure 142/65 H 121/60 Pulse Oximetry 97 96 12/11/17 05:54 Temperature 98.1 F Pulse Rate 71 Respiratory Rate 18 Blood Pressure 137/84 Pulse Oximetry 94 L Intake & Output 12/10/17 12/11/17 12/11/17 18:59 06:59 18:59 Intake Total 1508.2 / 1508.2 360 / 360 Output Total 50 / 50 Balance 1458.2 / 1458.2 360 / 360 Intake: IV 528.2 / 528.2 NS Inj 250 ML @ 0 mls/hr .ROUTE 250 / 250 .STK-MED ONE Rx#:[id number] Ancef 2 GM Premix Inj 2 gm In 50 / 50 50 ml @ 100 mls/hr IV.SIG Q6H [facility] Rx#:[id number] Oral 480 / 480 360 / 360 Anesthesia Amount 500 / 500 Output: Estimated Blood Loss 50 / 50 Other: # Voids 3 Date of Last Bowel Movement 12/09/17 12/09/17 # Bowel Movements 0 Narrative: Left lower extremity: Clean dry dressings intact. Mild swelling. Leg lengths appear equal. Active dorsiflexion plantar flexion of foot. Knee immobilizer reapplied Results - Labs CBC & Chem 7: 12/10/17 05:50 12/10/17 05:50 - Imaging Impressions Hip X-Ray 12/10/17 00:00 CONCLUSION: Anatomic alignment. Assessment and Plan - Assessment and Plan Left hip hemiarthroplasty with component failure status post revision left hip hemiarthroplasty POD 1 Weightbearing as tolerated left lower extremity with posterior hip precautions. Immobilizer on at all times Dry dressings with Primapore only. Begin changing POD 2 Lovenox Discharge plan. Follow up with Dr. Remy PEREZ in 2 weeks
[2017-12-11] MEDS: Sod Chloride 0.9% Inj 1,000 ML IV.CONT SCH ×2 (08:31→22:17)
[2017-12-11] MEDS: Vancomycin Inj 1 GM/200 ML PIGGYBACK IV.SIG SCH (08:45)
[2017-12-11] MEDS: ceFAZolin 2 GM Premix Inj 2 GM/50 ML PIGGYBACK IV.SIG SCH (08:56)
[2017-12-11] MEDS: Enoxaparin Inj 40 MG/0.4 ML Syringe SQ SCH (08:56)
[2017-12-11 09:53] LABS: Hematocrit 37.2 % (39.0-51.0); Hemoglobin 12.6 gm/dL (13.0-17.0); Mean Corpuscular Hemoglobin 33.9 pg (27.0-34.0); Mean Corpuscular Volume 99.8 fL (80.0-100.0); Mean Platelet Volume 8.3 fL (7.0-11.0); Platelet Count 112 th/mm3 (150-450); Red Blood Count 3.73 mil/mm3 (4.50-5.90); White Blood Count 5.3 th/mm3 (4.0-11.0)
--- NOTE | 2017-12-11 12:16 | P.PNFP ---
Subjective Interval history: Patient was seen this morning at bedside. Patient reports feeling over all well admitted that his hip was sore and that he did not sleep much last night. He reports ambulating around the room and on the floor. Patient has no questions or concerns. He denies any fevers, chill, nausea, vomiting, or shortness of breath. <Doroteo Campos - 12/11/17 15:35> Results - Labs Result diagrams: 12/12/17 08:04 12/10/17 05:50 <Lenore Jiménez - 12/12/17 14:05> Abnormal lab results 12/12/17 Range/Units 08:04 RBC 3.97 L (4.50-5.90) mil/mm3 Plt Count 130 L (150-450) th/mm3 Short CBC 12/12/17 Range/Units 08:04 WBC 4.1 (4.0-11.0) th/mm3 Hgb 13.4 (13.0-17.0) gm/dL Hct 39.3 (39.0-51.0) % Plt Count 130 L (150-450) th/mm3 <Lenore Jiménez - 12/12/17 14:05> Abnormal lab results 12/11/17 Range/Units 09:22 RBC 3.73 L (4.50-5.90) mil/mm3 Hgb 12.6 L (13.0-17.0) gm/dL Hct 37.2 L (39.0-51.0) % Plt Count 112 L (150-450) th/mm3 Short CBC 12/11/17 Range/Units 09:22 WBC 5.3 (4.0-11.0) th/mm3 Hgb 12.6 L (13.0-17.0) gm/dL Hct 37.2 L (39.0-51.0) % Plt Count 112 L (150-450) th/mm3 <Doroteo Campos - 12/11/17 12:16> - Imaging Impressions Hip X-Ray 12/10/17 00:00 CONCLUSION: Anatomic alignment. <Doroteo Campos - 12/11/17 15:35> Physical Exam Vital signs: Vital Signs 12/11/17 16:00 12/11/17 20:00 12/11/17 22:43 Temperature 98.4 F 98.3 F Pulse Rate 66 64 Respiratory Rate 19 18 18 Blood Pressure 120/74 144/73 H Pulse Oximetry 97 95 12/12/17 00:00 12/12/17 01:07 12/12/17 08:00 Temperature 98.3 F 97.8 F Pulse Rate 63 64 Respiratory Rate 17 18 18 Blood Pressure 118/64 114/69 Pulse Oximetry 96 96 12/12/17 12:00 12/12/17 13:13 Temperature 98.6 F Pulse Rate 77 Respiratory Rate 18 18 Blood Pressure 121/71 Pulse Oximetry 98 Intake & Output 12/11/17 12/12/17 12/12/17 18:59 06:59 18:59 Intake Total 1900 / 1900 Output Total 1000 / 1000 Balance 900 / 900 Intake: IV 500 / 500 Vancomycin Inj 1 gm In 200 ml @ 400 / 400 200 mls/hr IV.SIG Q12H [facility] Rx# :[id number] Ancef 2 GM Premix Inj 2 gm In 100 / 100 50 ml @ 100 mls/hr IV.SIG Q6H [facility] Rx#:[id number] Oral 1400 / 1400 Output: Urine 1000 / 1000 Other: Date of Last Bowel Movement 12/11/17 12/11/17 # Bowel Movements 0 <Lenore Jiménez M - 12/12/17 14:05> Vital Signs 12/10/17 16:00 12/10/17 19:13 12/10/17 21:30 Temperature 98 F 97.8 F Pulse Rate 66 58 L Respiratory Rate 16 18 18 Blood Pressure 149/59 H 142/65 H Pulse Oximetry 97 97 12/11/17 00:00 12/11/17 00:35 12/11/17 05:54 Temperature 97.8 F 98.1 F Pulse Rate 59 L 71 Respiratory Rate 18 18 18 Blood Pressure 121/60 137/84 Pulse Oximetry 96 94 L 12/11/17 08:00 12/11/17 10:25 Temperature 98.1 F Pulse Rate 61 Respiratory Rate 18 Blood Pressure 134/71 Pulse Oximetry 99 99 Intake & Output 12/10/17 12/11/17 12/11/17 18:59 06:59 18:59 Intake Total 1508.2 / 1508.2 360 / 360 500 / 500 Output Total 50 / 50 Balance 1458.2 / 1458.2 360 / 360 500 / 500 Intake: IV 528.2 / 528.2 500 / 500 NS Inj 250 ML @ 0 mls/hr .ROUTE 250 / 250 .STK-[facility] ONE Rx#:[id number] Vancomycin Inj 1 gm In 200 ml @ 400 / 400 200 mls/hr IV.SIG Q12H [facility] Rx# :[id number] Ancef 2 GM Premix Inj 2 gm In 50 / 50 100 / 100 50 ml @ 100 mls/hr IV.SIG Q6H [facility] Rx#:[id number] Oral 480 / 480 360 / 360 Anesthesia Amount 500 / 500 Output: Estimated Blood Loss 50 / 50 Other: # Voids 3 Date of Last Bowel Movement 12/09/17 12/09/17 # Bowel Movements 0 <Doroteo Campos [facility] 12/11/17 12:16> - Constitutional no acute distress, thin, cooperative <Doroteo Campos 12/11/17 15:35> - Routine HEENT Exam Head: Present: normocephalic, atraumatic <Doroteo Campos 12/11/17 15:35> - Routine Respiratory Exam Present: CTA bilaterally. Absent: rales, rhonchi, stridor, wheezes, crackles <AndresDoroteo Linda 12/11/17 15:35> - Routine Cardiovascular Exam Present: RRR, S1, S2. Absent: murmur, gallop, rubs <CamposDoroteo briscoe 12/11/17 15:35> - Routine Abdominal Exam Present: soft, normoactive bowel sounds. Absent: tenderness, distended, rebound , guarding <Doroteo Campos 12/11/17 15:35> - Routine Extremities Exam Present: pulses intact, tenderness. Absent: cyanosis, clubbing, edema, calf tenderness, extremity cold to touch <Doroteo Campos 12/11/17 15:35> Comments: Tenderness around left hip. No signs of infection at hip. DP pulses 2+ bilaterally. <Doroteo Campos 12/11/17 15:35> - Routine Skin Exam Present: intact. Absent: cyanosis, erythema, dry <Doroteo Campos 12/11/17 15 :35> - Routine Neurological Exam Present: alert, moving all extremities. Absent: sensory deficit, motor deficit <Doroteo Campos - 12/11/17 15:35> - Detailed Neurological Exam: Coma Scale Eye Opening: Spontaneous <Doroteo Campos - 12/11/17 15:35> Verbal Response: Oriented <Doroteo Campos 12/11/17 15:35> Motor Response: Obey commands <Doroteo Campos 12/11/17 15:35> [place] Coma Scale Total: 15 <Doroteo Campos 12/12/17 06:10> - Routine Psychiatric Exam Present: normal affect, normal thought process, cooperative, good insight, good judgment. Absent: depressed, anxious, agitated, paranoid, manic <Doroteo Campos 12/11/17 15:35> Assessment and Plan - Assessment (1) Dislocation, hip Code(s): S73.006A - Unspecified dislocation of unspecified hip, initial encounter Status: Resolved (2) Joint prosthesis complication Code(s): T84.9XXA - Unspecified complication of internal orthopedic prosthetic device, implant and graft, initial encounter Status: Resolved (3) COPD (chronic obstructive pulmonary disease) Code(s): J44.9 - Chronic obstructive pulmonary disease, unspecified Status: Chronic (4) History of alcohol abuse Code(s): Z87.898 - Personal history of other specified conditions Status: Chronic (5) Nutrition, metabolism, and development symptoms Code(s): R63.8 - Other symptoms and signs concerning food and fluid intake Status: Acute <Lenore Jiménez - 12/12/17 14:05> (1) Dislocation, hip Code(s): S73.006A - Unspecified dislocation of unspecified hip, initial encounter Status: Acute Plan: Patient with multiple episodes of hip dislocation. s/p Left total hip replacement. Most recently the Left the hip dislocated while patient was trying to get out of bed. Patient reported pain is 8/10 on admission. Patient is status post orthopedic surgery for new left hip hardware. Extremities are neuro- vascularly intact. Left hip x-ray status post left hip hemiarthroplasty on showed Anatomic alignment. - Follow Ortho recommendations: Weightbearing as tolerated left lower extremity with posterior hip precautions. Immobilizer on at all times Dry dressings with Primapore only. Continue Lovenox - Case Management consult for inpatient rehab placement (2) Joint prosthesis complication Code(s): T84.9XXA - Unspecified complication of internal orthopedic prosthetic device, implant and graft, initial encounter Status: Acute Plan: See plan above (3) COPD (chronic obstructive pulmonary disease) Code(s): J44.9 - Chronic obstructive pulmonary disease, unspecified Status: Chronic Plan: Patient had mild inspiratory wheezing on admission that has since resolved. Patient receive duonebs X1 and is satting well. - Duo nebs as needed for shortness of breath. - Titrate oxygen as needed to O2 saturation greater than 92%. (4) History of alcohol abuse Code(s): Z87.898 - Personal history of other specified conditions Status: Chronic Plan: Patient with history of alcohol abuse Placed on CIWA s/p thiamine and folic replacement (5) Nutrition, metabolism, and development symptoms Code(s): R63.8 - Other symptoms and signs concerning food and fluid intake Status: Acute Plan: Fluids: 100mls/hr Electrolytes: Replete as needed Nutrition: Resume normal diet DVT prophylaxis: SCDs <Doroteo Campos - 12/12/17 06:10> - Attending Attestation The exam, history, and the medical decision-making described in the above note were completed with the assistance of the resident physician. I reviewed and agree with the findings presented. I attest that I had a [id number] encounter with the patient on the same day, and personally performed and documented my assessment and findings in the medical record. He has done very well at home and is very active considering the multiple hip problems he has suffered. He states that he has friends at home who help him grocery shop for him and he does not feel that he will have any problems being able to get up the stairs to his apartment. <Lenore Jiménez M - 12/12/17 14:05> <Doroteo Campos O - Last Filed: 12/12/17 06:10> (1) Dislocation, hip Qualifiers: Encounter type: initial encounter Laterality: left Qualified Code(s): S73.005A - Unspecified dislocation of left hip, initial encounter (2) Joint prosthesis complication Qualifiers: Internal joint prosthesis site: hip Device complication type: mechanical Mechanical complication type: mechanical breakdown Encounter type: initial encounter Laterality: left Qualified Code(s): T84.011A - Broken internal left hip prosthesis, initial encounter <Lenore Jiménez M - Last Filed: 12/12/17 14:05> (1) Dislocation, hip Qualifiers: Encounter type: subsequent encounter Laterality: left Qualified Code(s): S73.005D - Unspecified dislocation of left hip, subsequent encounter (2) Joint prosthesis complication Qualifiers: Internal joint prosthesis site: hip Device complication type: mechanical Mechanical complication type: mechanical breakdown Encounter type: initial encounter Laterality: left Qualified Code(s): T84.011A - Broken internal left hip prosthesis, initial encounter <Doroteo Campos O - Last Filed: 12/12/17 06:10> (1) Dislocation, hip Qualifiers: Encounter type: initial encounter Laterality: left Qualified Code(s): S73.005A - Unspecified dislocation of left hip, initial encounter (2) Joint prosthesis complication Qualifiers: Internal joint prosthesis site: hip Device complication type: mechanical Mechanical complication type: mechanical breakdown Encounter type: initial encounter Laterality: left Qualified Code(s): T84.011A - Broken internal left hip prosthesis, initial encounter <Lenore Jiménez M - Last Filed: 12/12/17 14:05> (1) Dislocation, hip Qualifiers: Encounter type: subsequent encounter Laterality: left Qualified Code(s): S73.005D - Unspecified dislocation of left hip, subsequent encounter (2) Joint prosthesis complication Qualifiers: Internal joint prosthesis site: hip Device complication type: mechanical Mechanical complication type: mechanical breakdown Encounter type: initial encounter Laterality: left Qualified Code(s): T84.011A - Broken internal left hip prosthesis, initial encounter
[2017-12-11] MEDS: Temazepam 15 MG Capsule PO PRN (22:13)
[2017-12-12] MEDS: Enoxaparin Inj 40 MG/0.4 ML Syringe SQ SCH (08:04)
[2017-12-12 08:25] LABS: Hematocrit 39.3 % (39.0-51.0); Hemoglobin 13.4 gm/dL (13.0-17.0); Mean Corpuscular HGB Conc 34.2 % (32.0-36.0); Mean Corpuscular Hemoglobin 33.9 pg (27.0-34.0); Mean Corpuscular Volume 99.1 fL (80.0-100.0); Mean Platelet Volume 7.8 fL (7.0-11.0); Platelet Count 130 th/mm3 (150-450); Red Blood Count 3.97 mil/mm3 (4.50-5.90); Red Cell Distribution Width 13.2 % (11.6-17.2); White Blood Count 4.1 th/mm3 (4.0-11.0)
--- NOTE | 2017-12-12 09:20 | P.PNFP ---
Subjective Interval history: Patient was seen this morning at bedside. Patient reports feeling over all well but is still experiencing some hip soreness. He continues to ambulate around the room and on the floor. Patient has no questions or concerns and is eager to be discharged. He denies any fevers, chill, nausea, vomiting, or shortness of breath. <Doroteo Campos - 12/12/17 10:13> Results - Labs Result diagrams: 12/12/17 08:04 12/10/17 05:50 <Lenore Jiménez M - 12/12/17 14:08> Abnormal lab results 12/12/17 Range/Units 08:04 RBC 3.97 L (4.50-5.90) mil/mm3 Plt Count 130 L (150-450) th/mm3 Short CBC 12/12/17 Range/Units 08:04 WBC 4.1 (4.0-11.0) th/mm3 Hgb 13.4 (13.0-17.0) gm/dL Hct 39.3 (39.0-51.0) % Plt Count 130 L (150-450) th/mm3 <Lenore Jiménez M - 12/12/17 14:08> Abnormal lab results 12/11/17 12/12/17 Range/Units 09:22 08:04 RBC 3.73 L 3.97 L (4.50-5.90) mil/mm3 Hgb 12.6 L (13.0-17.0) gm/dL Hct 37.2 L (39.0-51.0) % Plt Count 112 L 130 L (150-450) th/mm3 Short CBC 12/11/17 12/12/17 Range/Units 09:22 08:04 WBC 5.3 4.1 (4.0-11.0) th/mm3 Hgb 12.6 L 13.4 (13.0-17.0) gm/dL Hct 37.2 L 39.3 (39.0-51.0) % Plt Count 112 L 130 L (150-450) th/mm3 <Doroteo Campos - 12/12/17 09:20> Physical Exam Vital signs: Vital Signs 12/11/17 16:00 12/11/17 20:00 12/11/17 22:43 Temperature 98.4 F 98.3 F Pulse Rate 66 64 Respiratory Rate 19 18 18 Blood Pressure 120/74 144/73 H Pulse Oximetry 97 95 12/12/17 00:00 12/12/17 01:07 12/12/17 08:00 Temperature 98.3 F 97.8 F Pulse Rate 63 64 Respiratory Rate 17 18 18 Blood Pressure 118/64 114/69 Pulse Oximetry 96 96 12/12/17 12:00 12/12/17 13:13 Temperature 98.6 F Pulse Rate 77 Respiratory Rate 18 18 Blood Pressure 121/71 Pulse Oximetry 98 Intake & Output 12/11/17 12/12/17 12/12/17 18:59 06:59 18:59 Intake Total 1900 / 1900 Output Total 1000 / 1000 Balance 900 / 900 Intake: IV 500 / 500 Vancomycin Inj 1 gm In 200 ml @ 400 / 400 200 mls/hr IV.SIG Q12H [facility] Rx# :[id number] Ancef 2 GM Premix Inj 2 gm In 100 / 100 50 ml @ 100 mls/hr IV.SIG Q6H [facility] Rx#:[id number] Oral 1400 / 1400 Output: Urine 1000 / 1000 Other: Date of Last Bowel Movement 12/11/17 12/11/17 # Bowel Movements 0 <Lenore Jiménez M - 12/12/17 14:08> Vital Signs 12/11/17 10:25 12/11/17 12:00 12/11/17 16:00 Temperature 98.1 F 98.4 F Pulse Rate 63 66 Respiratory Rate 18 19 Blood Pressure 120/63 120/74 Pulse Oximetry 99 95 97 12/11/17 20:00 12/11/17 22:43 12/12/17 00:00 Temperature 98.3 F 98.3 F Pulse Rate 64 63 Respiratory Rate 18 18 17 Blood Pressure 144/73 H 118/64 Pulse Oximetry 95 96 12/12/17 01:07 Temperature Pulse Rate Respiratory Rate 18 Blood Pressure Pulse Oximetry Intake & Output 12/11/17 12/12/17 12/12/17 18:59 06:59 18:59 Intake Total 1900 / 1900 Output Total 1000 / 1000 Balance 900 / 900 Intake: IV 500 / 500 Vancomycin Inj 1 gm In 200 ml @ 400 / 400 200 mls/hr IV.SIG Q12H [facility] Rx# :[id number] Ancef 2 GM Premix Inj 2 gm In 100 / 100 50 ml @ 100 mls/hr IV.SIG Q6H [facility] Rx#:[id number] Oral 1400 / 1400 Output: Urine 1000 / 1000 Other: Date of Last Bowel Movement 12/11/17 12/11/17 # Bowel Movements 0 <Doroteo Campos 12/12/17 09:20> - Constitutional no acute distress, thin, cooperative <Doroteo Campos 12/12/17 10:13> - Routine HEENT Exam Head: Present: normocephalic, atraumatic <Doroteo Campos 12/12/17 10:13> - Routine Respiratory Exam Present: CTA bilaterally. Absent: accessory muscle use, decreased breath sounds , rales, respiratory distress, rhonchi, stridor, wheezes, crackles, distant breath sounds, diminished air movement <Doroteo Campos 12/12/17 10:13> - Routine Cardiovascular Exam Present: RRR, S1, S2. Absent: murmur, gallop, rubs <Doroteo Campos 12/12/17 10:13> - Routine Abdominal Exam Present: soft, normoactive bowel sounds. Absent: tenderness, distended, rebound , guarding, organomegaly <Doroteo Campos 12/12/17 10:13> - Detailed Abdominal Exam Palpation/Percussion: Absent: hepatomegaly, splenomegaly <Doroteo Campos 04/21 10:13> - Routine Extremities Exam Present: pulses intact, normal capillary refill, tenderness. Absent: cyanosis, clubbing, edema, calf tenderness <Doroteo Campos 12/12/17 10:13> Comments: Tenderness upon light palpation of left hip <Doroteo Campos 12/12/17 10:13> - Routine Skin Exam Present: intact. Absent: cyanosis, erythema <Doroteo Campos 12/12/17 10:13> Comments: Area of surgical incision is clean, without debris, or signs of infection. <Doroteo Campos 12/12/17 10:13> - Routine Neurological Exam Present: alert, oriented X3, moving all extremities. Absent: sensory deficit, motor deficit, altered mental status <Doroteo Campos 12/12/17 10:13> Motor and sensation grossly intact in both legs and feet. <Doroteo Campos - 12/12/17 10:13> - Detailed Neurological Exam: Coma Scale Eye Opening: Spontaneous <Doroteo Campos - 12/12/17 10:13> Verbal Response: Oriented <Doroteo Campos - 12/12/17 10:13> Motor Response: Obey commands <Doroteo Campos 12/12/17 10:13> [place] Coma Scale Total: 15 <Doroteo Campos 12/12/17 11:58> - Routine Psychiatric Exam Present: normal affect, normal thought process, cooperative, good insight, good judgment. Absent: anxious, manic <Doroteo Campos 12/12/17 10:13> Assessment and Plan - Assessment (1) Dislocation, hip Code(s): S73.006A - Unspecified dislocation of unspecified hip, initial encounter Status: Resolved (2) Joint prosthesis complication Code(s): T84.9XXA - Unspecified complication of internal orthopedic prosthetic device, implant and graft, initial encounter Status: Resolved (3) COPD (chronic obstructive pulmonary disease) Code(s): J44.9 - Chronic obstructive pulmonary disease, unspecified Status: Chronic (4) History of alcohol abuse Code(s): Z87.898 - Personal history of other specified conditions Status: Chronic (5) Nutrition, metabolism, and development symptoms Code(s): R63.8 - Other symptoms and signs concerning food and fluid intake Status: Acute <Lenore Jiménez - 12/12/17 14:08> (1) Dislocation, hip Code(s): S73.006A - Unspecified dislocation of unspecified hip, initial encounter Status: Resolved Plan: Patient with multiple episodes of hip dislocation. s/p Left total hip replacement. Most recently the Left the hip dislocated while patient was trying to get out of bed. Patient reported pain is 8/10 on admission. Patient is status post left hemiarthroplasty 12/10/17. Extremities are neuro-vascularly intact with good motor, sensation, pulses, and capillary refill in both feet and legs bilaterally. PT conulted recommending use of walker with ambulation and home health. Probable discharge today. - Follow Ortho recommendations: Weightbearing as tolerated left lower extremity with posterior hip precautions. Immobilizer on at all times Dry dressings with Primapore only. - Discharge with walker with fronts wheels to home (2) Joint prosthesis complication Code(s): T84.9XXA - Unspecified complication of internal orthopedic prosthetic device, implant and graft, initial encounter Status: Resolved Plan: See plan above (3) COPD (chronic obstructive pulmonary disease) Code(s): J44.9 - Chronic obstructive pulmonary disease, unspecified Status: Chronic Plan: Patient had mild inspiratory wheezing on admission that has since resolved. Patient receive duonebs X1 and is satting well. - Follow up with PCP after discharge. (4) History of alcohol abuse Code(s): Z87.898 - Personal history of other specified conditions Status: Chronic Plan: Patient with history of alcohol abuse. Patient has has a CIWA score of 0 throught out inpatient stay, (5) Nutrition, metabolism, and development symptoms Code(s): R63.8 - Other symptoms and signs concerning food and fluid intake Status: Acute Plan: Fluids: Not indicated at this time Electrolytes: Replete as needed Nutrition: Resume normal diet DVT prophylaxis: SCDs <Doroteo Campos - 12/12/17 11:57> - Attending Attestation The exam, history, and the medical decision-making described in the above note were completed with the assistance of the resident physician. I reviewed and agree with the findings presented. I attest that I had a [id number] encounter with the patient on the same day, and personally performed and documented my assessment and findings in the medical record. Mr. Bang is ready to leave the hospital today and is happy to be going home <Lenore Jiménez M - 12/12/17 14:08> <Doroteo Campos O - Last Filed: 12/12/17 11:57> (1) Dislocation, hip Qualifiers: Encounter type: subsequent encounter Laterality: left Qualified Code(s): S73.005D - Unspecified dislocation of left hip, subsequent encounter (2) Joint prosthesis complication Qualifiers: Internal joint prosthesis site: hip Device complication type: mechanical Mechanical complication type: mechanical breakdown Encounter type: initial encounter Laterality: left Qualified Code(s): T84.011A - Broken internal left hip prosthesis, initial encounter <TinoLenore M - Last Filed: 12/12/17 14:08> (1) Dislocation, hip Qualifiers: Encounter type: subsequent encounter Laterality: left Qualified Code(s): S73.005D - Unspecified dislocation of left hip, subsequent encounter (2) Joint prosthesis complication Qualifiers: Internal joint prosthesis site: hip Device complication type: mechanical Mechanical complication type: mechanical breakdown Encounter type: initial encounter Laterality: left Qualified Code(s): T84.011A - Broken internal left hip prosthesis, initial encounter <Doroteo Campos O - Last Filed: 12/12/17 11:57> (1) Dislocation, hip Qualifiers: Encounter type: subsequent encounter Laterality: left Qualified Code(s): S73.005D - Unspecified dislocation of left hip, subsequent encounter (2) Joint prosthesis complication Qualifiers: Internal joint prosthesis site: hip Device complication type: mechanical Mechanical complication type: mechanical breakdown Encounter type: initial encounter Laterality: left Qualified Code(s): T84.011A - Broken internal left hip prosthesis, initial encounter <TinoLenore M - Last Filed: 12/12/17 14:08> (1) Dislocation, hip Qualifiers: Encounter type: subsequent encounter Laterality: left Qualified Code(s): S73.005D - Unspecified dislocation of left hip, subsequent encounter (2) Joint prosthesis complication Qualifiers: Internal joint prosthesis site: hip Device complication type: mechanical Mechanical complication type: mechanical breakdown Encounter type: initial encounter Laterality: left Qualified Code(s): T84.011A - Broken internal left hip prosthesis, initial encounter
--- NOTE | 2017-12-12 09:38 | P.PNOP ---
Subjective Interval history: Resting comfortably with no new complaints. Knee immobilizer and Physical Exam Vital signs: Vital Signs 12/11/17 10:25 12/11/17 12:00 12/11/17 16:00 Temperature 98.1 F 98.4 F Pulse Rate 63 66 Respiratory Rate 18 19 Blood Pressure 120/63 120/74 Pulse Oximetry 99 95 97 12/11/17 20:00 12/11/17 22:43 12/12/17 00:00 Temperature 98.3 F 98.3 F Pulse Rate 64 63 Respiratory Rate 18 18 17 Blood Pressure 144/73 H 118/64 Pulse Oximetry 95 96 12/12/17 01:07 12/12/17 08:00 Temperature 97.8 F Pulse Rate 64 Respiratory Rate 18 18 Blood Pressure 114/69 Pulse Oximetry 96 Intake & Output 12/11/17 12/12/17 12/12/17 18:59 06:59 18:59 Intake Total 1900 / 1900 Output Total 1000 / 1000 Balance 900 / 900 Intake: IV 500 / 500 Vancomycin Inj 1 gm In 200 ml @ 400 / 400 200 mls/hr IV.SIG Q12H [facility] Rx# :[id number] Ancef 2 GM Premix Inj 2 gm In 100 / 100 50 ml @ 100 mls/hr IV.SIG Q6H [facility] Rx#:[id number] Oral 1400 / 1400 Output: Urine 1000 / 1000 Other: Date of Last Bowel Movement 12/11/17 12/11/17 # Bowel Movements 0 Narrative: Left lower extremity: Clean dry dressings intact. Mild swelling. Leg lengths appear equal. Active dorsiflexion plantar flexion of foot. Knee immobilizer reapplied Results - Labs CBC & Chem 7: 12/12/17 08:04 12/10/17 05:50 Laboratory Results - last 24 hr 12/11/17 12/12/17 09:22 08:04 WBC 5.3 4.1 RBC 3.73 L 3.97 L Hgb 12.6 L 13.4 Hct 37.2 L 39.3 MCV 99.8 99.1 MCH 33.9 33.9 MCHC 34.0 34.2 RDW 13.0 13.2 Plt Count 112 L 130 L MPV 8.3 7.8 Assessment and Plan - Assessment and Plan Left hip hemiarthroplasty with component failure status post revision left hip hemiarthroplasty POD 2 Weightbearing as tolerated left lower extremity with posterior hip precautions. Immobilizer on at all times Dry dressings with Primapore only. Lovenox Discharge plan. Follow up with Dr. Marion or PA in 2 weeks
--- NOTE | 2017-12-12 15:46 | P.DCO ---
- Physical Therapy Physical Therapy: Gait training Hip: Total hip, Protocol: Left, Posterior hip precautions (strict) Canvas Knee Splint: At all times Left Lower Extremity Weight Bearing: Weight bearing as tolerated - Nursing Dressing changes: Daily dressing change, Coverderm/Primapore - Certification Need for Home Health services: I have seen patient Singh Bang on 12/12/17. My clinical findings support the need for the requested home health care services because: Need for Home Health Services: Limited mobility due to disease progression Homebound Certification: I certify that my clinical findings support that this patient is homebound because: Homebound Certification: Post-op weakness
--- NOTE | 2017-12-12 17:00 | P.DIET ---
Nutritional Evaluation Type of nutrition evaluation: initial Nutrition screening: Weight Loss > 10 lbs Subjective Oral Diet Tolerance Assessment Indicates: Edentulous Subjective Comments: Pt says he has no problem chewing "unless the food is really hard like a granola bar". Pt reports a 20 to 40lb wt loss over the last 6-months d/t "not eating good". Pt receptive to receiving Ensure supplement. Objective - Diagnosis Hip dislocation, prosthesis issues - Objective % IBW: 76 Body Weight Used for Calculations: IBW Energy Needs - Lower Range (kCal/kg): 35 Energy Needs - Upper Range (kCal/kg): 40 Lower Limit kCal/kg (kCals): 2,253 Upper Limit kCal/kg (kCals): 2,552 Lower Limit Protein Factor (Grams per Kg): 1.2 Upper Limit Protein Factor (Grams per Kg): 1.5 Lower Protein Needs (Protein): 77 Upper Protein Needs (Protein): 96 Dietitian Reviewed in Medical Record: Current diet, Curent medications, Intake & Output, Labs, Medical history Oral Diet Intake Amount: Good 75-90% Objective Comments: PMH: Bipolar 1 DO, Hep C, schizophrenia, COPD, alcohol use Meds Include: Haldol -BM, +UOP 1000ml Assessment Assessment: Pt is at nutritional risk r/t recent unintentional wt loss and low BMI. Adequate po intake her 50% or greater for meals. Send Ensure Enlive w/meals(= 350 kcal and 20g Protein per serving). Labs reviewed. Dietitian following. Recommendations: 1.Send Ensure Enlive w/meals 2.Dietitian following Dietitian to Monitor: Lab values, Supplement acceptance, Intake & Output, Diet tolerance, Weight change, PO Intake
[2017-12-12] MEDS: Temazepam 15 MG Capsule PO PRN (22:05)
--- NOTE | 2017-12-13 06:34 | P.PNOP ---
Subjective Interval history: Resting comfortably with no new complaints. Is anticipating discharge home Physical Exam Vital signs: Vital Signs 12/12/17 08:00 12/12/17 12:00 12/12/17 13:13 Temperature 97.8 F 98.6 F Pulse Rate 64 77 Respiratory Rate 18 18 Blood Pressure 114/69 121/71 Pulse Oximetry 96 98 12/12/17 16:00 12/12/17 20:00 12/12/17 23:31 Temperature 98.5 F 98.2 F Pulse Rate 65 63 Respiratory Rate 19 17 17 Blood Pressure 143/62 H 132/81 Pulse Oximetry 95 97 12/13/17 00:00 Temperature 98.1 F Pulse Rate 68 Respiratory Rate 17 Blood Pressure 115/68 Pulse Oximetry 97 Intake & Output 12/12/17 12/12/17 12/13/17 06:59 18:59 06:59 Other: # Voids 5 Date of Last Bowel Movement 12/11/17 12/11/17 12/12/17 # Bowel Movements 1 Narrative: Left lower extremity: Clean dry dressings intact. Incision well approximated and healing well with no erythema. mild swelling. Leg lengths appear equal. Active dorsiflexion plantar flexion of foot. Knee immobilizer reapplied Results - Labs CBC & Chem 7: 12/12/17 08:04 12/10/17 05:50 Laboratory Results - last 24 hr 12/12/17 08:04 WBC 4.1 RBC 3.97 L Hgb 13.4 Hct 39.3 MCV 99.1 MCH 33.9 MCHC 34.2 RDW 13.2 Plt Count 130 L MPV 7.8 Assessment and Plan - Problem List (1) Status post left hip replacement Code(s): Z96.642 - Presence of left artificial hip joint Status: Acute - Assessment and Plan Left hip hemiarthroplasty with component failure status post revision left hip hemiarthroplasty POD 3 Weightbearing as tolerated left lower extremity with posterior hip precautions. Immobilizer on at all times. Dry dressings with Primapore only. Lovenox Discharged home with home health care Smoking cessation is discussed Follow up with Dr. Marion or PA in 2 weeks
[2017-12-13] MEDS: Enoxaparin Inj 40 MG/0.4 ML Syringe SQ SCH (08:48)
[2017-12-13 09:55] VITALS: RESP 18
--- NOTE | 2017-12-13 10:44 | P.PNFP ---
Subjective Interval history: Patient was seen this morning at bedside. Patient reports feeling over all well and is experiencing less hip soreness. He continues to ambulate around the room and on the floor. Patient shared that although it has been recommended that he use a walker with front wheels, he feels like he is able to ambulate much better on crutches. He is eager to be discharged. He denies any fevers, chill, nausea, vomiting, or shortness of breath. <Doroteo Campos - 12/13/17 21:03> Results - Labs Result diagrams: 12/12/17 08:04 12/10/17 05:50 <Lenore Jiménez - 12/15/17 09:32> Physical Exam Vital signs: Vital Signs 12/12/17 12:00 12/12/17 13:13 12/12/17 16:00 Temperature 98.6 F 98.5 F Pulse Rate 77 65 Respiratory Rate 18 18 19 Blood Pressure 121/71 143/62 H Pulse Oximetry 98 95 12/12/17 20:00 12/12/17 23:31 12/13/17 00:00 Temperature 98.2 F 98.1 F Pulse Rate 63 68 Respiratory Rate 17 17 17 Blood Pressure 132/81 115/68 Pulse Oximetry 97 97 12/13/17 06:00 12/13/17 08:00 Temperature 98 F Pulse Rate 64 Respiratory Rate 17 18 Blood Pressure 103/67 Pulse Oximetry 95 Intake & Output 12/12/17 12/13/17 12/13/17 18:59 06:59 18:59 Other: # Voids 5 Date of Last Bowel Movement 12/11/17 12/12/17 # Bowel Movements 1 <Doroteo Campos - 12/13/17 10:44> - Constitutional no acute distress, thin, cooperative <Doroteo Campos 12/13/17 10:44> - Routine HEENT Exam Head: Present: normocephalic, atraumatic <Doroteo Campos 12/13/17 10:44> - Routine Respiratory Exam Present: CTA bilaterally. Absent: accessory muscle use, patient mechanically ventilated, decreased breath sounds, rales, respiratory distress, rhonchi, stridor, wheezes, crackles, distant breath sounds, diminished air movement < Doroteo Campos 12/13/17 10:44> - Routine Cardiovascular Exam Present: RRR, S1, S2. Absent: murmur, gallop, rubs <Doroteo Camops 12/13/17 10:44> - Routine Abdominal Exam Present: soft, normoactive bowel sounds. Absent: tenderness, distended, rebound , guarding <Doroteo Campos 12/13/17 10:44> - Routine Extremities Exam Present: pulses intact, normal capillary refill. Absent: cyanosis, clubbing, edema, calf tenderness <Doroteo Campos 12/13/17 10:44> Comments: Patient has surgical covered with ice pack overlying. No debris or signs of infection. <Doroteo Campos 12/13/17 10:44> - Routine Skin Exam Present: intact. Absent: cyanosis, erythema <Doroteo Campos 12/13/17 10:44> - Routine Neurological Exam Present: alert, oriented X3, moving all extremities, normal speech. Absent: sensory deficit, motor deficit, altered mental status <Doroteo Campos 10:44> - Detailed Neurological Exam: Coma Scale Eye Opening: Spontaneous <Doroteo Campos 12/13/17 10:44> Verbal Response: Oriented <Doroteo Campos 12/13/17 10:44> Motor Response: Obey commands <Doroteo Campos 12/13/17 10:44> [place] Coma Scale Total: 15 <Doroteo Campos 12/13/17 21:03> - Routine Psychiatric Exam Present: normal affect, normal thought process, cooperative, good insight, good judgment. Absent: anxious, manic <Doroteo Campos 12/13/17 10:44> Assessment and Plan - Assessment (1) Dislocation, hip Code(s): S73.006A - Unspecified dislocation of unspecified hip, initial encounter Status: Resolved Plan: Patient with multiple episodes of hip dislocation. s/p Left total hip replacement. Most recently the left hip dislocated while patient was trying to get out of bed. Patient reported pain was 8/10 on admission. Patient is status post left hemiarthroplasty 12/10/17. Extremities are neuro-vascularly intact with good motor, sensation, pulses, and capillary refill in both feet and legs bilaterally. PT consulted recommending use of walker with ambulation and home health. Probable discharge today. - Follow Ortho recommendations: Weightbearing as tolerated left lower extremity with posterior hip precautions. Immobilizer on at all times Dry dressings with Primapore only. - Discharge with walker with fronts wheels to home per PT (2) Joint prosthesis complication Code(s): T84.9XXA - Unspecified complication of internal orthopedic prosthetic device, implant and graft, initial encounter Status: Resolved Plan: See plan above (3) COPD (chronic obstructive pulmonary disease) Code(s): J44.9 - Chronic obstructive pulmonary disease, unspecified Status: Chronic Plan: Patient had mild inspiratory wheezing on admission that has since resolved. Patient receive duonebs X1 and is satting well. - Follow up with PCP after discharge. (4) History of alcohol abuse Code(s): Z87.898 - Personal history of other specified conditions Status: Chronic Plan: Patient with history of alcohol abuse. Patient has has a CIWA score of 0 throught out inpatient stay, (5) Nutrition, metabolism, and development symptoms Code(s): R63.8 - Other symptoms and signs concerning food and fluid intake Status: Acute Plan: Fluids: Not indicated at this time Electrolytes: Replete as needed Nutrition: Resume normal diet DVT prophylaxis: SCDs <Doroteo Campos - 12/13/17 21:01> (1) COPD (chronic obstructive pulmonary disease) Code(s): J44.9 - Chronic obstructive pulmonary disease, unspecified Status: Chronic (2) History of alcohol abuse Code(s): Z87.898 - Personal history of other specified conditions Status: Chronic (3) Nutrition, metabolism, and development symptoms Code(s): R63.8 - Other symptoms and signs concerning food and fluid intake Status: Acute <Lenore Jiménez - 12/15/17 09:32> - Attending Attestation The exam, history, and the medical decision-making described in the above note were completed with the assistance of the resident physician. I reviewed and agree with the findings presented. I attest that I had a [id number] encounter with the patient on the same day, and personally performed and documented my assessment and findings in the medical record. he is doing well and has no problems with getting around and has help at home <Lenore Jiménez M - 12/15/17 09:32> <Doroteo Campos O - Last Filed: 12/13/17 21:01> (1) Dislocation, hip Qualifiers: Encounter type: subsequent encounter Laterality: left Qualified Code(s): S73.005D - Unspecified dislocation of left hip, subsequent encounter (2) Joint prosthesis complication Qualifiers: Internal joint prosthesis site: hip Device complication type: mechanical Mechanical complication type: mechanical breakdown Encounter type: initial encounter Laterality: left Qualified Code(s): T84.011A - Broken internal left hip prosthesis, initial encounter <Doroteo Campos O - Last Filed: 12/13/17 21:01> (1) Dislocation, hip Qualifiers: Encounter type: subsequent encounter Laterality: left Qualified Code(s): S73.005D - Unspecified dislocation of left hip, subsequent encounter (2) Joint prosthesis complication Qualifiers: Internal joint prosthesis site: hip Device complication type: mechanical Mechanical complication type: mechanical breakdown Encounter type: initial encounter Laterality: left Qualified Code(s): T84.011A - Broken internal left hip prosthesis, initial encounter
--- NOTE | 2017-12-13 11:09 | P.DS ---
Date of admission: 12/09/17 12:26 Primary care physician: No Primary Care Physician Brief History from admission: Mr Bang is a 52-year-old male with past medical history of COPD, prior left hip prosthesis as well prior prosthesis dislocation who presented to the ED due to painful left hip dislocation. Patient reports that as he was trying to get out of bed his left hip "came out" of place. The pain was more intense (rating 10/ 10) and he decided to come to the ED for further evaluation. pain in the ED was 8/10. The day prior patient states that he fell from a chair but did not notice any pain or other issues with his left hip. Endorsed numbness and tingling of feet bilaterally since 1 month ago. He denied any chest pain, shortness of breath, palpitations, seizure activity, loss of consciousness, bowel or bladder incontinence, nausea, vomiting, fever, or chills. DS: Diagnosis - Discharge Diagnosis (1) COPD (chronic obstructive pulmonary disease) Status: Chronic (2) History of alcohol abuse Status: Chronic (3) Nutrition, metabolism, and development symptoms Status: Acute DS: Medications - Discharge Medications Prescriptions: oxycodone 5 mg PO Q4H PRN #40 tab PRN Reason: Pain Scale 4 To 6 Moderate DS: Summary Hospital Course: Mr Bang is a 52-year-old male with past medical history of COPD and prior left hip prosthesis who presented to the ED due to painful left hip dislocation. Patient reports that as he was trying to get out of bed and his left hip "came out" of place. The pain was more intense (rating 10/10) and he decided to come to the ED for further evaluation. Imaging confirmed superior dislocation of the acetabular component of the hip prosthesis. Dislocation could not be manipulated back into the acetabulum and warranted orthopedic surgery. Patient was admitted and underwent a left hemiarthroplasty. Evidently the acetabulum was shallow so it was upgraded to hold the hip replacement better. His inpatient course was uneventful and after PT consult was discharge to home health with a front wheeled walker and to follow up with ortho outpatient. - Time Spent with Patient Total time spent providing and/or coordinating discharge services: - Quality: VTE Deep Vein Thrombosis/Pulmonary Embolism Present on Admission: No Exam Vital signs: Vital Signs 12/12/17 12:00 12/12/17 13:13 12/12/17 16:00 Temperature 98.6 F 98.5 F Pulse Rate 77 65 Respiratory Rate 18 18 19 Blood Pressure 121/71 143/62 H Pulse Oximetry 98 95 12/12/17 20:00 12/12/17 23:31 12/13/17 00:00 Temperature 98.2 F 98.1 F Pulse Rate 63 68 Respiratory Rate 17 17 17 Blood Pressure 132/81 115/68 Pulse Oximetry 97 97 12/13/17 06:00 12/13/17 08:00 Temperature 98 F Pulse Rate 64 Respiratory Rate 17 18 Blood Pressure 103/67 Pulse Oximetry 95 Intake & Output 12/12/17 12/13/17 12/13/17 18:59 06:59 18:59 Other: # Voids 5 Date of Last Bowel Movement 12/11/17 12/12/17 # Bowel Movements 1 - Constitutional no acute distress, thin, cooperative - Routine HEENT Exam Head: Present: normocephalic, atraumatic - Routine Chest/Breast/Axilla Exam Chest wall: Absent: tenderness, mass - Routine Respiratory Exam Present: CTA bilaterally. Absent: accessory muscle use, patient mechanically ventilated, decreased breath sounds, rales, respiratory distress, rhonchi, stridor, wheezes, crackles - Routine Cardiovascular Exam Present: RRR, S1, S2. Absent: murmur, gallop, rubs - Routine Abdominal Exam Present: soft, normoactive bowel sounds. Absent: tenderness, distended, rebound , guarding - Routine Extremities Exam Present: pulses intact, normal capillary refill. Absent: cyanosis, clubbing, calf tenderness Comments: Patient has surgical covered with ice pack overlying. No debris or signs of infection. - Routine Skin Exam Present: intact. Absent: cyanosis, erythema - Routine Neurological Exam Present: alert, oriented X3, moving all extremities, normal tone, normal speech. Absent: sensory deficit, motor deficit, altered mental status, facial asymmetry - Routine Psychiatric Exam Present: normal affect, normal thought process, cooperative, good insight, good judgment. Absent: agitated, paranoid, manic Results Procedures completed during hospitalization: Left hip hemiarthroplasty due to component failure. Completed studies during hospitalization: Hip Xray 12/09/17 11:04 Views of the pelvis and left hip obtained. Left hip arthroplasty displaced superiorly. Right hip unremarkable. Vascular calcifications. Postsurgical changes in the pelvis Hip Xray 12/09/17: 11:59 Persistent superior dislocation of the acetabular component of the hip prosthesis. The left femoral component has been relocated to anatomic position. Hip Xray 12/10/17 Anatomic alignment following reduction of the acetabular bipolar component. Moderate degenerative changes right hip Marked vascular calcifications. - Impressions ITS Impressions Hip Xray 12/09/17 11:04 Views of the pelvis and left hip obtained. Left hip arthroplasty displaced superiorly. Right hip unremarkable. Vascular calcifications. Postsurgical changes in the pelvis Hip Xray 12/09/17: 11:59 Persistent superior dislocation of the acetabular component of the hip prosthesis. The left femoral component has been relocated to anatomic position. Hip Xray 12/10/17 Anatomic alignment following reduction of the acetabular bipolar component. Moderate degenerative changes right hip Marked vascular calcifications. Discharge Plan - Discharge Disposition Patient Disposition: /Home Health Service - Discharge Condition Condition: Stable - Discharge Order Discharge Orders: Discharge Order (Routine); Ordered 12/13/17 Ordered By: Doroteo Campos Orthopedic Clear for Discharge (Routine); Ordered 12/13/17 Ordered By: José Miguel De Leon - Discharge Details Anticipated Discharge Date: 12/12/17 Discharge Comment: Discharge pending coordination of home health services. - Physicians Team Primary Care Provider: Primary Care Physici,No Attending Provider: Lenore Jiménez Other Providers: Moncho Dangelo MD ; Chin Fleming MD
[2017-12-13 19:27] VITALS: BP 130/77; PULSE 67; TEMP 97.3; O2SAT 99
== END 2017-12-13 19:54 | disposition home health service (06) ==
LOC: NEPC 10:03 → NEDA 12:26 → N06 15:43
PROVIDERS: ADMIT Family Medicine; ATTEND Family Medicine

== ENCOUNTER 2018-01-27 17:16 | Inpatient (IN) ==
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
[2018-01-27 19:14] LABS: Baso % (Auto) 0.7 % (0.0-2.0); Eos # (Auto) 0.1 th/mm3 (0.0-0.4); Eos % (Auto) 2.1 % (0.0-4.0); Hematocrit 38.2 % (39.0-51.0); Hemoglobin 13.1 gm/dL (13.0-17.0); Lymph % (Auto) 28.4 % (9.0-44.0); Mean Corpuscular HGB Conc 34.2 % (32.0-36.0); Mean Corpuscular Hemoglobin 34.1 pg (27.0-34.0); Mean Corpuscular Volume 99.8 fL (80.0-100.0); Mean Platelet Volume 7.7 fL (7.0-11.0); Mono # (Auto) 0.8 th/mm3 (0.0-0.9); Mono % (Auto) 11.8 % (0.0-8.0); Neut # (Auto) 3.9 th/mm3 (1.8-7.7); Platelet Count 164 th/mm3 (150-450); Red Blood Count 3.83 mil/mm3 (4.50-5.90); Red Cell Distribution Width 13.9 % (11.6-17.2); White Blood Count 6.9 th/mm3 (4.0-11.0)
[2018-01-27 19:20] LABS: Amphetamine Screen,Urine Neg (Neg); Barbiturate Screen,Urine Neg (Neg); Cannabinoid Screen,Urine Pos (Neg); Cocaine Screen,Urine Neg (Neg)
[2018-01-27 19:22] LABS: Opiate Screen,Urine Neg (Neg)
[2018-01-27 19:26] LABS: Albumin 3.6 g/dL (3.4-5.0); Anion Gap 11 meq/L (5-15); Aspartate Aminotransferase 41 U/L (15-37); Blood Urea Nitrogen 8 mg/dL (7-18); Calcium 8.3 mg/dL (8.5-10.1); Chloride 107 meq/L (98-107); Glomerular Filtration Rate Greater Than 89 mL/min (>89); Glucose,Random 79 mg/dL (74-106); Potassium 3.8 meq/L (3.5-5.1); Sodium 141 meq/L (136-145)
[2018-01-27 19:27] LABS: Alanine Aminotransferase 39 U/L (12-78)
[2018-01-27 19:28] LABS: Alcohol 273 mg/dL (0-5)
[2018-01-27 19:37] LABS: Alkaline Phosphatase 97 U/L (45-117); Thyroid Stimulating Hormone 0.997 uIU/mL (0.358-3.740); Total Protein 8.4 g/dL (6.4-8.2)
[2018-01-28] MEDS ORDERED: Aluminum/Magnesium/Simethacone Susp 30 ML UDC PO PRN (17:48)
[2018-01-28] MEDS ORDERED: Haloperidol Inj 5 MG/ML Ampul IM PRN (17:51)
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
[2018-01-28] MEDS: Senna/Docusate Sodium 8.6/50 MG Tablet PO SCH (23:30)
[2018-01-29] MEDS: Acetaminophen 325 MG Tablet PO PRN ×3 (00:38→20:38)
[2018-01-29] MEDS: LORazepam 1 MG Tablet PO PRN ×3 (00:38→22:43)
[2018-01-29 08:26] LABS: Anion Gap 7 meq/L (5-15); Blood Urea Nitrogen 9 mg/dL (7-18); Calcium 8.2 mg/dL (8.5-10.1); Carbon Dioxide 29.4 meq/L (21.0-32.0); Chloride 103 meq/L (98-107); Glomerular Filtration Rate Greater Than 89 mL/min (>89); Glucose,Random 92 mg/dL (74-106); Potassium 4.2 meq/L (3.5-5.1); Sodium 139 meq/L (136-145)
[2018-01-29 08:27] LABS: Cholesterol 129 mg/dL (120-200); Triglycerides 58 mg/dL (42-150)
[2018-01-29 08:29] LABS: Chol/HDL Ratio 1.67 Ratio; HDL Cholesterol 76.9 mg/dL (40.0-60.0); LDL Cholesterol,Calculated 41 mg/dL (0-99)
[2018-01-29] MEDS: Senna/Docusate Sodium 8.6/50 MG Tablet PO SCH ×2 (09:47→20:36)
[2018-01-29 12:33] LABS: Hemoglobin A1c 5.6 % (4.3-6.0)
[2018-01-29] MEDS ORDERED: Aluminum/Magnesium/Simethacone Susp 30 ML UDC PO PRN (13:40)
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
[2018-01-29] MEDS: QUEtiapine 25 MG Tablet PO SCH (17:33)
[2018-01-30] MEDS: QUEtiapine 25 MG Tablet PO SCH ×3 (08:45→18:35)
[2018-01-30] MEDS: Senna/Docusate Sodium 8.6/50 MG Tablet PO SCH ×2 (10:38→20:29)
--- NOTE | 2018-01-30 12:25 | P.PNPSY ---
Subjective Remarks: Patient seen in his room with nurse Alda, chart reviewed, patient compliant medications. Patient calm cooperative is vague about any suicidal ideation. Says he cannot wait to get his money and on about 04 February and Himself a place. He still complains of some mild pain in his left hip but states that is tolerable. For now continue treatment no change Review of Systems All other systems reviewed negative except as stated in HPI Mental Status Examination Appearance: Disheveled Consciousness: Alert Orientation: x4 Motor Activity: Abnormal gait (Recent hip revision) Speech: Unremarkable Language: Adequate Fund of Knowledge: Adequate Attention and Concentration: Adequate Memory: Unremarkable Mood: Sad, Anxious Affect: Other (Slight increased range and intensity) Thought Process & Associations: Intact, Logical Thought Content: Hallucinations (The auditory) Hallucination Type: Auditory (Vague) Delusion Type: None Suicidal Ideation: Yes (We will possibly take the suicide pill) Suicidal Plan: Yes Suicidal Intention: No Homicidal Ideation: No Homicidal Plan: No Homicidal Intention: No Insight: Poor Judgment: Impulsive Assessment and Plan - Assessment (1) Alcohol abuse with intoxication Code(s): F10.129 - Alcohol abuse with intoxication, unspecified Status: Acute (2) Adjustment disorder with mixed disturbance of emotions and conduct Code(s): F43.25 - Adjustment disorder with mixed disturbance of emotions and conduct Status: Acute - Plan Plan: Patient continues depressed though is vague about voices today somewhat vague about suicidality. Compliant medication Justification for Continued Inpatient Stay: At this time patient would decompensate if placed in a lower level of care Discharge Planning: To be determined Request Healthcare Surrogate/Guardian Advocate?: No
[2018-01-31] MEDS: QUEtiapine 25 MG Tablet PO SCH ×3 (08:54→18:12)
[2018-01-31] MEDS: Senna/Docusate Sodium 8.6/50 MG Tablet PO SCH ×2 (10:28→21:06)
--- NOTE | 2018-01-31 13:11 | P.PNPSY ---
Subjective Remarks: Patient seen in his room with nurse Alda, chart reviewed, patient compliant medication, patient discussed with nurse. Patient is showing some increased affect with improved eye contact he denies suicidality at this time denies voices. On this still remains his depression. For now continue treatment Review of Systems All other systems reviewed negative except as stated in HPI Mental Status Examination Appearance: Appropriate Consciousness: Alert Orientation: x4 Motor Activity: Abnormal gait (Recent hip revision) Speech: Unremarkable Language: Adequate Fund of Knowledge: Adequate Attention and Concentration: Adequate Memory: Unremarkable Mood: Sad, Anxious Affect: Other (Slight increased range and intensity) Thought Process & Associations: Intact, Logical Thought Content: Hallucinations (Denies at this time) Hallucination Type: Auditory (Denies at this time) Delusion Type: None Suicidal Ideation: Yes (Denies at this time) Suicidal Plan: Yes (Denies at this time) Suicidal Intention: No Homicidal Ideation: No Homicidal Plan: No Homicidal Intention: No Insight: Poor Judgment: Impulsive Assessment and Plan - Assessment (1) Alcohol abuse with intoxication Code(s): F10.129 - Alcohol abuse with intoxication, unspecified Status: Acute (2) Adjustment disorder with mixed disturbance of emotions and conduct Code(s): F43.25 - Adjustment disorder with mixed disturbance of emotions and conduct Status: Acute - Plan Plan: Patient is showing some mild improvement through [facility] remains depressed. Compliant medications. For now continue treatment Justification for Continued Inpatient Stay: At this time patient would decompensate a place to the lower level of care Discharge Planning: To be determined Request Healthcare Surrogate/Guardian Advocate?: No
[2018-02-01] MEDS: QUEtiapine 25 MG Tablet PO SCH ×3 (09:32→17:05)
[2018-02-01] MEDS: Senna/Docusate Sodium 8.6/50 MG Tablet PO SCH ×2 (09:33→22:04)
--- NOTE | 2018-02-01 11:24 | P.PNPSY ---
Subjective Remarks: Patient is seen today in his room nurse Lopez, chart reviewed, patient continues calm low behavioral problems, there is still shows depression though he denies suicidality. The continues anxiety related to his home in this situation is financial issues. For now we will discontinue all Ativan orders. The [facility] protocol we will add Lexapro 10 mg daily to regimen he still complained of some pain in his left hip postsurgical Review of Systems All other systems reviewed negative except as stated in HPI Mental Status Examination Appearance: Appropriate Consciousness: Alert Orientation: x4 Motor Activity: Abnormal gait (Recent hip revision) Speech: Unremarkable Language: Adequate Fund of Knowledge: Adequate Attention and Concentration: Adequate Memory: Unremarkable Mood: Sad, Anxious Affect: Other (Slight increased range and intensity) Thought Process & Associations: Intact, Logical Thought Content: Appropriate Hallucination Type: None Delusion Type: None Suicidal Ideation: Yes Suicidal Plan: Yes (Denies denies) Suicidal Intention: No Homicidal Ideation: No Homicidal Plan: No Homicidal Intention: No Insight: Poor Judgment: Impulsive Assessment and Plan - Assessment (1) Alcohol abuse with intoxication Code(s): F10.129 - Alcohol abuse with intoxication, unspecified Status: Acute (2) Adjustment disorder with mixed disturbance of emotions and conduct Code(s): F43.25 - Adjustment disorder with mixed disturbance of emotions and conduct Status: Acute - Plan Plan: Patient continues somewhat depressed though he denies suicidality we will add Lexapro to her regimen. We will discontinue all Ativan orders Justification for Continued Inpatient Stay: At this time patient would decompensate a place to a lower level of care Discharge Planning: To be determined Request Healthcare Surrogate/Guardian Advocate?: No
[2018-02-01] MEDS: Escitalopram 10 MG Tablet PO SCH (13:33)
[2018-02-02] MEDS: Escitalopram 10 MG Tablet PO SCH (09:46)
[2018-02-02] MEDS: QUEtiapine 25 MG Tablet PO SCH ×3 (09:46→18:09)
[2018-02-02] MEDS: Senna/Docusate Sodium 8.6/50 MG Tablet PO SCH ×2 (09:48→20:42)
--- NOTE | 2018-02-02 16:22 | P.PNPSY ---
Subjective Remarks: Patient was seen and case discussed with nursing. Patient says his suicidal ideation is improved. He describes him today is "not really." He says he does not have a place to live now. He is largely keeping to himself. Affect remains blunted. Compliant with medications no outbursts Mental Status Examination Appearance: Appropriate Consciousness: Alert Orientation: x4 Motor Activity: Abnormal gait (Recent hip revision) Speech: Unremarkable Language: Adequate Fund of Knowledge: Adequate Attention and Concentration: Adequate Memory: Unremarkable Mood: Sad Affect: Other (Slight increased range and intensity) Thought Process & Associations: Intact, Logical Thought Content: Appropriate Hallucination Type: None Delusion Type: None Suicidal Ideation: No Suicidal Plan: No (Denies denies) Suicidal Intention: No Homicidal Ideation: No Homicidal Plan: No Homicidal Intention: No Insight: Poor Judgment: Impulsive Assessment and Plan - Assessment (1) Alcohol abuse with intoxication Code(s): F10.129 - Alcohol abuse with intoxication, unspecified Status: Acute (2) Adjustment disorder with mixed disturbance of emotions and conduct Code(s): F43.25 - Adjustment disorder with mixed disturbance of emotions and conduct Status: Acute - Plan Plan: Continue current treatment plan Justification for Continued Inpatient Stay: Patient would decompensate in a less restrictive setting Request Healthcare Surrogate/Guardian Advocate?: No
[2018-02-03] MEDS: QUEtiapine 25 MG Tablet PO SCH ×3 (09:37→17:05)
[2018-02-03] MEDS: Escitalopram 10 MG Tablet PO SCH (09:37)
[2018-02-03] MEDS: Senna/Docusate Sodium 8.6/50 MG Tablet PO SCH ×3 (09:37→20:28)
--- NOTE | 2018-02-03 12:47 | P.PNPSY ---
Subjective Remarks: Patient was seen and case discussed with nursing. Patient says his depression is completely resolved. Describes his mood is a 10 out of 10. She is concern today is getting the laundry done before discharge. He denies suicidal or homicidal ideation intent or plan. Eating and sleeping well. Interacting with others Mental Status Examination Appearance: Appropriate Consciousness: Alert Orientation: x4 Motor Activity: Abnormal gait (Recent hip revision) Speech: Unremarkable Language: Adequate Fund of Knowledge: Adequate Attention and Concentration: Adequate Memory: Unremarkable Mood: Appropriate Affect: Other (Slight increased range and intensity) Thought Process & Associations: Intact, Logical Thought Content: Appropriate Hallucination Type: None Delusion Type: None Suicidal Ideation: No Suicidal Plan: No (Denies denies) Suicidal Intention: No Homicidal Ideation: No Homicidal Plan: No Homicidal Intention: No Insight: Fair Judgment: Impulsive Assessment and Plan - Assessment (1) Alcohol abuse with intoxication Code(s): F10.129 - Alcohol abuse with intoxication, unspecified Status: Acute (2) Adjustment disorder with mixed disturbance of emotions and conduct Code(s): F43.25 - Adjustment disorder with mixed disturbance of emotions and conduct Status: Acute - Plan Plan: Consider discharge early next week Justification for Continued Inpatient Stay: Patient would decompensate in a less restrictive setting Request Healthcare Surrogate/Guardian Advocate?: No
[2018-02-04] MEDS: QUEtiapine 25 MG Tablet PO SCH ×3 (09:28→17:11)
[2018-02-04] MEDS: Senna/Docusate Sodium 8.6/50 MG Tablet PO SCH ×2 (09:28→20:46)
[2018-02-04] MEDS: Escitalopram 10 MG Tablet PO SCH (09:28)
--- NOTE | 2018-02-04 10:16 | P.PNPSY ---
Subjective Remarks: Patient seen in his room with nurse Dina, chart reviewed, patient compliant medications. Patient calm cooperative more alert today denies suicidality homicidality voice or visions. Says he is attempting to verify his lodging situation. Consider discharge tomorrow Review of Systems All other systems reviewed negative except as stated in HPI Mental Status Examination Appearance: Appropriate Consciousness: Alert Orientation: x4 Motor Activity: Abnormal gait (Recent hip revision) Speech: Unremarkable Language: Adequate Fund of Knowledge: Adequate Attention and Concentration: Adequate Memory: Unremarkable Mood: Appropriate Affect: Other (Slight increased range and intensity) Thought Process & Associations: Intact, Logical Thought Content: Appropriate Hallucination Type: None Delusion Type: None Suicidal Ideation: No Suicidal Plan: No (Denies denies) Suicidal Intention: No Homicidal Ideation: No Homicidal Plan: No Homicidal Intention: No Insight: Fair Judgment: Impulsive (Improving) Assessment and Plan - Assessment (1) Alcohol abuse with intoxication Code(s): F10.129 - Alcohol abuse with intoxication, unspecified Status: Acute (2) Adjustment disorder with mixed disturbance of emotions and conduct Code(s): F43.25 - Adjustment disorder with mixed disturbance of emotions and conduct Status: Acute - Plan Plan: Patient improving, compliant medications, denies suicidal or homicidal ideation. Consider discharge tomorrow Justification for Continued Inpatient Stay: At this time patient would decompensate if not placed in an appropriate level of care Discharge Planning: Consider discharge tomorrow Request Healthcare Surrogate/Guardian Advocate?: No
[2018-02-04 17:40] VITALS: O2SAT 97
[2018-02-05 06:06] VITALS: RESP 16; TEMP 97.8
[2018-02-05 08:47] VITALS: BP 108/73; PULSE 76
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
[2018-02-05] MEDS: Escitalopram 10 MG Tablet PO SCH (09:33)
[2018-02-05] MEDS: Senna/Docusate Sodium 8.6/50 MG Tablet PO SCH (09:33)
[2018-02-05] MEDS: QUEtiapine 25 MG Tablet PO SCH (09:33)
== END 2018-02-05 11:45 | disposition home or self-care (01) ==
LOC: NEPD 17:16 → NEDA 01-28 17:48 → H250 01-28 21:24
PROVIDERS: ADMIT Psychiatry & Neurology Psychiatry; ATTEND Psychiatry & Neurology Psychiatry